=== PATIENT | female | born 1960 | race Two or more races ===

== ENCOUNTER 2024-10-09 17:03 | Inpatient (IN) | payer MEDICAID, SELFPAY ==
[2024-10-09] VITALS (8 sets, daily range): BP systolic 80–122; BP diastolic 48–61; PULSE 90–126; RESP 18–22; TEMP 37.5–39.5; O2SAT 96–100; BMI 29.2
--- NOTE | 2024-10-09 18:44 | PC.NURSE ---
sepsis alert called
--- NOTE | 2024-10-09 18:48 | XR_ITS ---
Examination: AP chest single view Technique one AP portable upright chest single view Exam date and time: October 09, 2024 at 1936 hours INDICATIONS: Sepsis alert FINDINGS: Normal heart size Subsegmental atelectasis at the lung bases. No lobar pneumonia Right arm dual PICC line tip SVC IMPRESSION: No pneumonia identified
--- NOTE | 2024-10-09 18:48 | PD.EDRME ---
Rapid Medical Screening Exam RME Arrival date/time: 10/09/24 17:03 Chief Complaint: Fever Time Seen by Provider: 10/09/24 17:09 Vital signs: Vital Signs Temperature 103.1 F H 10/09/24 18:43 Pulse Rate 126 H 10/09/24 18:43 Respiratory Rate 22 H 10/09/24 18:43 Blood Pressure 80/48 L 10/09/24 18:43 Pulse Oximetry (%) 97 10/09/24 18:43 Oxygen Delivery Method Room Air 10/09/24 18:43 RME Narrative: Fever initiated today, patient reports nausea and vomiting. Currently undergoing chemo, last treatment 2 weeks ago.
--- NOTE | 2024-10-09 18:51 | EKG_ITS ---
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: : [id number] Requested By: Quan Weiss Order Number: [id number] Reading MD: Quan Weiss Measurements Intervals Mcdougal Rate: 119 P: 40 SD: 134 QRS: -24 QRSD: 81 T: -59 QT: 339 QTc: 478 Interpretive Statements SINUS TACHYCARDIA MINIMAL VOLTAGE CRITERIA FOR LVH, CONSIDER NORMAL VARIANT [MEETS CRITERIA IN ONE OF: R(aVL), S(V1), R(V5), R(V5/V6)+S(V1)] POSSIBLE ANTERIOR MYOCARDIAL INFARCTION , OF INDETERMINATE AGE [30 ms Q WAVE IN V3/V4, OR R < 0.2 mV IN V4] Compared to ECG 05/24/2024 08:24:17 Myocardial infarct finding now present Sinus rhythm no longer present Sinus arrhythmia no longer present Short SD interval no longer present T-wave abnormality no longer present /store/S0/[id number]/[id number].pdf
[2024-10-09 19:18] LABS: Lactate (Lactic Acid) 3.1 mMol/L (0.4-2.0)
[2024-10-09 19:23] LABS: Basophils % (Auto) 0 % (0-2.5); Eosinophils % (Auto) 0 % (0-10); Hematocrit 24.6 % (36.0-46.0); Immature Granulocytes % (Auto) 11 % (0-0); Immature Granulocytes Auto 0.57 Thou/mm3 (0.00-0.00); Lymphocytes # (Auto) 0.2 Thou/mm3 (1.0-4.8); Lymphocytes % (Auto) 3 % (10-50); Mean Corpuscular HGB Conc 33.7 g/dl (31.0-37.0); Mean Corpuscular Hemoglobin 35.2 pg (25.0-35.0); Mean Corpuscular Volume 104 fL (80-100); Monocytes # (Auto) 0.4 Thou/mm3 (0.0-0.8); Monocytes % (Auto) 7 % (0-12); Neutrophils # (Auto) 4.2 Thou/mm3 (1.8-7.7); Neutrophils % (Auto) 79 % (37-80); Nucleated Red Blood Cell # 0.03 Thou/mm3 (0.00-0.00); Nucleated Red Blood Cell % 1 /100 WBC (0); Platelet Count 111 Thou/mm3 (140-440); Red Blood Count 2.36 Miln/mm3 (4.00-5.20); White Blood Count 5.4 Thou/mm3 (3.6-11.0)
[2024-10-09 19:26] LABS: Hemoglobin 8.3 g/dL (12.0-16.0)
--- NOTE | 2024-10-09 19:50 | PD.EDFEVER ---
ED Fever RME/HPI General Chief Complaint: Fever Stated Complaint: FEVER (CANCER PATIENT) Time Seen by Provider: 10/09/24 17:09 Arrival date/time: 10/09/24 17:03 RME / HPI RME / HPI Narrative: Fever initiated today, patient reports nausea and vomiting. Currently undergoing chemo, last treatment 2 weeks ago. This section includes all my notes and documentations, including HPI, PE, and ED course. Ramesh Patel MD HPI: 64-year-old female here to be evaluated with about 24-hour history of fever and chills and bodyaches and malaise and vomiting. No cough or congestion. No diarrhea. No abdominal pain. No other complaints. ROS: All negative except as documented in HPI. Physical Exam: General: Alert and oriented. No acute distress when remaining still. Eyes: Conjunctivae and lids clear. ENT: No nasal congestion. Neck: Supple. Heart: RRR. Lungs: No respiratory distress. Good air movement. No rhonchi, wheezing, rales. Abdomen: Soft and nontender. Normal bowel sounds. No distension. No rebound or guarding. Back: No CVA tenderness. Skin: Warm and dry. Neuro: Alert and oriented X 3. I reviewed all diagnostic test results. My interpretation of the EKG is sinus rhythm with no acute ST?T changes. My interpretation of the chest x-ray is no acute findings. Blood tests remarkable for K 3.1, lactic acid 3.1, troponin 0.291. UA showed leukocyte Estrace and WBC 21. COVID/influenza/strep/RSV negative. At this point, diagnoses include sepsis, possibly from UTI. Treatment here included IV fluid, KCl, Zofran, and Rocephin. Some improvement noted. I discussed the case with our hospitalist. About the presentation and exam and diagnostics and treatments here. And need of further care in the hospital. Will accept the patient. Ramesh Patel MD Related Data Home Medications ?Medication ?Instructions ?Recorded ?Confirmed lisinopril 20 mg tablet 20 mg PO QDAY #0 tabs 09/18/15 05/27/24 atorvastatin 10 mg tablet 10 mg PO QPM 02/29/24 05/27/24 folic acid 1 mg tablet 1 mg PO QDAY 02/29/24 05/27/24 hydroxychloroquine 200 mg tablet 200 mg PO QDAY 02/29/24 05/27/24 Held on 05/31/24. Instructions: Resume on 06/11/24. levothyroxine 75 mcg tablet 75 mcg PO QDAY 02/29/24 05/27/24 methotrexate sodium 2.5 mg tablets 2.5 mg PO QWEEK 02/29/24 05/27/24 in a dose pack Held on 05/31/24. Instructions: Resume on 06/14/24. f/u with rheumatology Allergies Allergy/AdvReac Type Severity Reaction Status Date / Time morphine Allergy Intermediate Hypotension Verified 10/09/24 17:06 codeine Allergy Unknown Verified 10/09/24 17:06 Course Quality Measures none Orders Category Date Time Status Bedside COVID-19 Antigen Test NOW Care 10/09/24 18:48 Completed Bedside Influenza A&B Antigen Test NOW Care 10/09/24 18:49 Completed COVID-19 Screening Questionnaire NOW Care 10/09/24 22:32 Completed Decision to Admit X1 Care 10/09/24 22:32 Completed EKG (ED ONLY) *Do not use* NOW Care 10/09/24 18:51 Completed Saline [Insert IV] NOW Care 10/09/24 19:52 Active CXR [XR chest 1V] Stat Exams 10/09/24 18:48 Completed EKG (ED Only) Stat Exams 10/09/24 18:51 Draft Blood Culture (Lab) Stat Lab 10/09/24 19:04 Received C-Reactive Protein Stat Lab 10/09/24 19:04 Completed CBC Stat Lab 10/09/24 19:04 Completed CMP [Comprehensive Metabolic Panel] Stat Lab 10/09/24 19:04 Completed Lactate (Lactic Acid) Stat Lab 10/09/24 19:04 Completed Lactic Acid, 3 HR Stat Lab 10/09/24 22:47 Completed Lipase Stat Lab 10/09/24 19:04 Completed Path Review Blood Smear Stat Lab 10/09/24 19:04 Completed Procalcitonin Stat Lab 10/09/24 19:04 Completed RSV [Respiratory Syncytial Virus Ag] Stat Lab 10/09/24 21:04 Completed Sed Rate (ESR) Stat Lab 10/09/24 19:04 Completed Strep A Rapid Stat Lab 10/09/24 21:04 Completed Thyroid Stimulating Hormone Stat Lab 10/09/24 19:04 Completed Troponin I Stat Lab 10/09/24 19:04 Completed Troponin I Stat Lab 10/09/24 21:44 Completed UA [Urinalysis] Stat Lab 10/09/24 21:36 Completed Urine Culture Stat Lab 10/09/24 21:36 Received Acetaminophen Tab [Tylenol ES Tab] Med 10/09/24 18:48 Discontinued 1,000 mg PO X1 ONE KCL 10% Liq UDC 15 ML Med 10/09/24 21:26 Discontinued 40 meq PO X1 ONE Ketorolac Inj [Toradol Inj] Med 10/09/24 19:52 Discontinued 15 mg IVP X1 ONE Nitroglycerin Oint 2% [Nitro-paste Oint 2%] Med 10/09/24 19:52 Discontinued 1 inch TOP X1 ONE Ondansetron Inj [Zofran Inj] Med 10/09/24 18:51 Discontinued 4 mg IV X1 ONE Sodium Chloride 0.9% 1000 ml [Ns] 2,313 ml Med 10/09/24 18:49 Discontinued IV 2,313 mls/hr cefTRIAXone/D5w 1gm IV premix [Rocephin/D5w 1gm IV Med 10/09/24 18:50 Discontinued premix] 1 gm in 50 ml IV X1 Vital Signs Vital signs: Vital Signs Temperature 103.1 F H 10/09/24 18:43 Pulse Rate 126 H 10/09/24 18:43 Respiratory Rate 22 H 10/09/24 18:43 Blood Pressure 80/48 L 10/09/24 18:43 Pulse Oximetry (%) 97 10/09/24 18:43 Oxygen Delivery Method Room Air 10/09/24 18:43 Fever Patient data External records reviewed:: [facility] previous records Clinical information provided by:: patient and family Social determinants that could affect healthcare access:: none Patient has the following chronic illnesses:: Lymphoma undergoing treatment How is presenting disease/condition affected by chronic disease/condition?: exacerbated by Evaluation data The following diagnostics were reviewed and interpreted by me:: lab results, radiology exam(s) and EKG tracing(s) (My interpretation of the EKG is: Sinus tachycardia (119 bpm) with nonspecific ST-T changes. Ramesh Patel MD) Lab and/or radiology exams considered but not ordered:: None Interpretation Summary: Sepsis Medications / Prescriptions Medications or Prescriptions considered but not ordered:: None Medication administrations:: Medication Administration History Acetaminophen (Acetaminophen 325 Mg Tablet) 650 mg PO Q6H PRN PRN Reason: Fever >101.5 Stop: 11/08/24 22:32 Enoxaparin Sodium (Enoxaparin Sod Inj 40 Mg/0.4 Ml Syringe) 40 mg SC QDAY [facility] Stop: 10/24/24 08:59 Sodium Chloride (Ns) 1,000 mls @ 75 mls/hr IV .[id number] [facility] Stop: 11/08/24 22:44 Last Admin: 10/09/24 22:42 Dose: 75 mls/hr Documented By: CVL Ceftriaxone Sodium/Dextrose (Rocephin/D5w 1gm Iv Premix) 1 gram in 50 mls @ 100 mls/hr IV QDAY [facility] Stop: 10/17/24 08:59 Magnesium Sulfate (Magnesium Sulfate Ivpb) 4 gm in 50 mls @ 12.5 mls/hr IV X1 ONE Stop: 10/10/24 04:45 Last Admin: 10/10/24 01:21 Dose: 12.5 mls/hr Documented By: CVL Levothyroxine Sodium (Levothyroxine Sodium 88 Mcg Tablet) 75 mcg PO ACBR [facility] Stop: 11/09/24 05:59 Ondansetron HCl (Ondansetron Inj 2 Mg/Ml Inj 2 Ml) 4 mg IV Q6H PRN; Protocol PRN Reason: NAUSEA OR VOMITING Stop: 11/08/24 22:32 Discontinued Medications Acetaminophen (Acetaminophen 500 Mg Tablet) 1,000 mg PO X1 ONE Stop: 10/09/24 18:49 Last Admin: 10/09/24 20:29 Dose: 1,000 mg Documented By: CVL Sodium Chloride (Ns) 2,313 mls @ 2,313 mls/hr 30 ml/kg infuse over 60 min (2313 ml) IV .Q1H ONE; Protocol Stop: 10/09/24 19:48 Last Infusion: 10/09/24 21:40 Dose: Infused Documented By: Admin: 10/09/24 20:25 Dose: 2,313 mls/hr Documented By: RC Ceftriaxone Sodium/Dextrose (Rocephin/D5w 1gm Iv Premix) 1 gm in 50 mls @ 100 mls/hr IV X1 ONE Stop: 10/09/24 19:19 Last Infusion: 10/09/24 21:00 Dose: Infused Documented By: Admin: 10/09/24 20:26 Dose: 100 mls/hr Documented By: ELIDA Acetaminophen (Ofirmev Inj) 1,000 mg in 100 mls @ 250 mls/hr IV Q6HR YVETTE Stop: 10/10/24 18:23 Last Admin: 10/10/24 00:14 Dose: Not Given Documented By: CVL Non-Admin Reason: Cancelled by Provider Acetaminophen (Ofirmev Inj) 1,000 mg in 100 mls @ 250 mls/hr IV X1 ONE Stop: 10/10/24 00:36 Last Infusion: 10/10/24 00:50 Dose: Infused Documented By: Admin: 10/10/24 00:26 Dose: 250 mls/hr Documented By: CVL Ketorolac Tromethamine (Ketorolac Inj 30 Mg/Ml Vial) 15 mg IVP X1 ONE Stop: 10/09/24 19:53 Last Admin: 10/09/24 20:32 Dose: 15 mg Documented By: CVL Nitroglycerin (Nitroglycerin Oint 2% 1 Inch Packet) 1 inch TOP X1 ONE Stop: 10/09/24 19:53 Last Admin: 10/09/24 20:49 Dose: Not Given Documented By: CVL Non-Admin Reason: Cancelled by Provider Ondansetron HCl (Ondansetron Inj 2 Mg/Ml Inj 2 Ml) 4 mg IV X1 ONE; Protocol Stop: 10/09/24 18:52 Last Admin: 10/09/24 21:06 Dose: Not Given Documented By: CVL Non-Admin Reason: Change of Condition Potassium Chloride (Potassium Chloride 10% 20 Meq/15 Ml Udc) 40 meq PO X1 ONE Stop: 10/09/24 21:27 Last Admin: 10/09/24 21:45 Dose: 40 meq Documented By: CVL Potassium Chloride (Potassium Chloride 20 Meq Tabcr) 40 meq PO X1 ONE Stop: 10/09/24 22:35 Last Admin: 10/09/24 22:43 Dose: Not Given Documented By: CVL Non-Admin Reason: Cancelled by Provider Potassium Phos/Sodium Phos (Naph,[facility] 1 Packet (1.5 Gm)) 2 packet PO X1 ONE Stop: 10/10/24 00:47 Last Admin: 10/10/24 01:56 Dose: 2 packet Documented By: CVL Treatment from me here included IV fluid, KCl, Zofran, and Rocephin. Consultations Consultation(s) initiated? (list below): No Diagnosis Fever Differential Diagnosis: cellulitis, fever of unknown origin, gastroenteritis, community acquired pneumonia, pyelonephritis, viral infection, sepsis and influenza Most likely diagnosis given after review of the tests above:: Sepsis Admission Indicated Admission indicated?: not indicated Admission Request Was there a request for admission?: No Disposition Plan Disposition Plan: Discharge Discharge Attestation Discharge Attestation: The patient and all family members were given an opportunity to ask questions and understood the discharge instructions. Discharge instructions specifically effects, indications for sooner follow up or return to the emergency department, and the expected course of current diagnosis. Patient condition: Stable Critical Care Time Critical Care Time Critical Care Time: Yes Total Critical Care Time (min.): 32 Attestation: Due to a high probability of clinically significant, life threatening deterioration, the patient required my highest level of preparedness to intervene emergently and I personally spent this critical care time directly and personally managing the patient. This critical care time included obtaining a history; examining the patient; ordering and review of studies; arranging urgent treatment with development of a management plan; evaluation of patient's response to treatment; frequent reassessment; and discussions with family and other providers. It was exclusive of separately billable procedures and treating other patients and teaching time. Ramesh Patel MD Discharge Plan Plan Patient Disposition: Admit Acute Care w/in Hospital Problem List Clinical Impression: Sepsis
[2024-10-09 20:23] LABS: Sed Rate (ESR) 5 mm/hr (0-30)
--- NOTE | 2024-10-09 20:25 | PC.NURSE ---
PT HAVING CHILLS AT THIS TIME, TYLENOL AND TORADOL ORDERED AND GIVEN TO PT.
[2024-10-09] MEDS: cefTRIAXone/D5w 1gm IV premix 1 GM/50 ML BAG IV (20:26)
[2024-10-09] MEDS: ACETAMINOPHEN 500 MG TABLET 1000 MG PO (20:29)
[2024-10-09] MEDS: KETOROLAC INJ 30 MG/ML VIAL 15 MG IVP (20:32)
[2024-10-09 20:38] LABS: Alanine Aminotransferase 16 U/L (10-49); Albumin, Serum 3.5 gm/dL (3.4-4.8); Albumin/Globulin Ratio 1.3 (1.2-2.2); Alkaline Phosphatase 73 U/L (46-116); Anion Gap 12 (7-16); Aspartate Amino Transferase 35 U/L (0-34); BUN/Creatinine Ratio 10 Ratio (12-20); Bilirubin,Total 0.9 mg/dL (0.3-1.2); Blood Urea Nitrogen 8 mg/dL (9-23); Calcium 8.9 mg/dL (8.3-10.6); Calcium (Corrected) 9.3 mg/dL (8.5-10.1); Carbon Dioxide 25.7 mMol/L (20.0-31.0); Chloride 104 mMol/L (98-107); Creatinine (Component) 0.8 mg/dL (0.6-1.3); Estimated Creatinine Clearance 71.4 mL/min (>60); Globulin 2.7 gm/dL (2.3-3.5); Glucose 173 mg/dL (74-106); Lipase 18 U/L (12-53); Osmolality,Calculated 285 (275-295); Potassium 3.1 mMol/L (3.4-5.1); Procalcitonin 1.23 ng/ml (0.0-0.49); Sodium 142 mMol/L (136-145); Total Protein 6.2 gm/dL (5.7-8.2); eGFR > 60 See Note
[2024-10-09 20:39] LABS: Troponin I 0.291 ng/mL (0.0-0.045)
[2024-10-09 21:25] LABS: C-Reactive Protein 1.6 mg/dL (0.0-0.9); Thyroid Stimulating Hormone 1.44 uIU/mL (0.55-4.78)
[2024-10-09 21:44] LABS: Strep A Rapid Negative (Negative)
[2024-10-09] MEDS: POTASSIUM CHLORIDE 10% 20 MEQ/15 ML UDC 40 MEQ PO (21:45)
[2024-10-09 21:51] LABS: Collection Type, Urine Clean Catch
[2024-10-09 21:58] LABS: Respiratory Syncytial Virus Ag Negative (Negative)
[2024-10-09 22:04] LABS: Bilirubin,Urine Negative (Negative); Blood,Urine Negative (Negative); Clarity,Urine Turbid (Clear/Hazy); Color,Urine Drk-Yellow (Lt Yel-Yel); Glucose, Urine Trace (Negative); Hyaline Casts,Urine 8 /hpf (0-1); Ketones,Urine Trace (Negative); Leukocyte Esterase,Urine Positive (Negative); Nitrite,Urine Negative (Negative); Protein,Urine 2+ (Neg - Trace); RBC,Urine 1 /hpf (0-3); Specific Gravity,Urine 1.033 (1.001-1.035); Squamous Epithelial Cell,Urine 6 /hpf (0-5); WBC,Urine 21 /hpf (0-5)
[2024-10-09 22:09] LABS: Path Review Blood Smear Sent to Pathologist
[2024-10-09 22:12] LABS: Troponin I 0.313 ng/mL (0.0-0.045)
[2024-10-09 22:14] LABS: Reflex Lactate? Y
--- NOTE | 2024-10-09 22:37 | EVENTNT_ITS ---
Documentation for date of: 10/09/24 Event Note Event Note: A 64-year-old female presented to the ER with the chief complaint of fever, chills, and generalized weakness. The patient reports symptom onset earlier today, including high fever, chills, shaking, and three episodes of vomiting. She also experienced nausea, transient shortness of breath during chills, and dizziness. She denies cough, diarrhea, dysuria, or abdominal pain aside from transient discomfort after vomiting. She h ad chemotherapy two weeks ago and is scheduled for her final cycle on October 16. Lab drawn this morning showed a hemoglobin of 7.1, but she was unable to obtain a transfusion due to facility limitations. Her last transfusion was in May. She reports significant fatigue and difficulty with mobility. The patient has a history of B-cell lymphoma, SLE, and HTN. Surgical history includes tubal ligation. Current medications include Lisinopril, Atorvastatin, and Levothyroxine. She is not currently on medications for lupus per oncology guidance. Social history includes no tobacco, alcohol, or recreational drug use. She lives with her adult children and does not drive due to weakness. Her functional status is limited, with difficulty walking and standing. She is scheduled for a PET scan on Tuesday. In the ER, vital signs recorded as temp 103.1 F, HR 126, RR 22, BP 80/48 mmHg. Labs revealed WBC 5.4, Hgb 8.3, MCV 104, Plt 111, Na 142, K 3.1, BUN 8, Cr 0.8, glucose 173, lactic acid 3.1, CRP 1.6, troponin trended from 0.291 to 0.313, and procalcitonin 1.23. RSV, strep, COVID, and flu were negative. UA showed turbid urine with WBC 21 and negative nitrites. CXR showed no pneumonia, and EKG d emonstrated sinus tachycardia with QTC 478. Sepsis alert was initiated. The patient was admitted for further evaluation and management. #Sepsis Assessment: - Fever, tachycardia (HR 126), hypotension (BP 80/48), RR 22, temp 103.1?F ? meets >= SIRS criteria - qSOFA 2 (SBP <100, RR >=22) - Elevated lactate (3.1), procalcitonin (1.23) - Immunocompromised (recent chemotherapy, B-cell lymphoma) - UA suggestive of UTI (turbid, WBC 21) Plan: - Broad-spectrum IV antibiotics. - IV fluid resuscitation (initial 30 mL/kg crystalloids). - Continue sepsis protocol, monitor lactate trend and end-organ function. #NSTEMI, Type 2 Assessment: - Mild troponin elevation (0.291 -> 0.313) without chest pain or ischemic EKG changes; likely due to supply-demand mismatch from hypotension during sepsis. Plan: - Continue monitoring troponin, repeat AM. - Continue telemetry monitoring. - Avoid hypotension; support MAP >65 mmHg. - Hold BP meds. #B-cell Lymphoma (on chemotherapy) Assessment: - Active malignancy, recent chemotherapy (2 weeks ago), scheduled final cycle October 16. - Immunosuppressed state. PET scan scheduled. Plan: - Supportive care during hospitalization. - Monitor for tumor lysis, neutropenia, and infection. #Systemic Lupus Erythematosus Assessment: - History of SLE; currently not on immunosuppressants per oncology guidance. Plan: - No immediate intervention unless flare suspected (currently none). - Outpatient f/u. #Hypertension Assessment: - History of HTN; currently hypotensive and septic. Plan: - Hold antihypertensive medications during hypotension. - Resume when hemodynamically stable. - Monitor BP and renal function daily. #Macrocytic Anemia Assessment: - Chronic anemia (Hgb 7.1 earlier, now 8.3), MCV 104, history of transfusions; possibly chemotherapy-related and/or nutritional. Plan: - Type and crossmatch for PRBC; consider transfusion if symptomatic or Hgb <7?8 based on clinical status. - Evaluate for B12/folate levels. - Monitor CBC trend. #Hypokalemia - Replace. - Check MG/phosphorus. #Hypothyroidism - Continue home meds.
[2024-10-09] MEDS: SODIUM CHLORIDE 0.9% 1000 ML 1,000 ML 75 ML IV (22:42)
[2024-10-09 22:57] LABS: Lactic Acid, 3 HR 2.3 mMol/L (0.4-2.0)
[2024-10-09 23:26] LABS: Phosphorous 2.3 mg/dL (2.4-5.1)
--- NOTE | 2024-10-09 23:29 | PD.RESHP ---
Documentation for date of: 10/09/24 [facility] History of Present Illness History of present illness: Agustina is a 64 y/o female with PMHx B-cell lymphoma (diagnosed January 2024, sees oncologist in [place] but will be seeing Dr. Winters in [place] soon, last chemo 2 weeks ago, gets chemo every 3 weeks), hypertension hyperlipidemia, hypothyroidism, SLE who comes in for an evaluation of fever and chills with associated vomiting with the onset of this morning. Patient reports that she had her temperature measured today and was 103.6 and has never been that high. She says she is experienced no dysuria but gets urinary frequency increased usually at night and thinks it is because she drinks a lot of water. She gets cancer treatment every 3 weeks in [place] for her B-cell lymphoma. She denies any recent travel or recent sick contacts. She does take shots for white cells and hemoglobin. She denies any CP, SOB, numbness, tingling. She said her last UTI was in May 2024, and she does not get them that often. She says she is getting a PET scan and chemotherapy next week. She has no other complaints at this time. ED Course: Patient came to the ED for febrile 103.1, heart rate 126, respiratory 22, blood pressure of 80/48, saturating 97% on room air. Patient was worked up was found to have a sodium 142, potassium 3.1, BUN/creatinine 8 and 0.8 respectively, sugar 173, white count 5.4, hemoglobin 8.4, platelets 111, lactate 3.1, troponin 0.291, TSH 1.44, urinalysis showed positive leukocyte esterase, 21 white cells, no bacteria, showed hyaline casts. EKG shows sinus tachycardia. CXR showed atelectasis but no pneumonia. Sepsis alert was initiated and patient was given 2.3 L normal saline bolus, Rocephin x 1, 1 g Tylenol, Toradol 15 mg x 1, potassium 40 mEq, and started on normal saline 75 cc an hour. Medicine was consulted and patient was admitted to floors. PMHx: As above Surgeries: Tubal ligation, cholecystectomy (2008), Jeff fundoplication (2003) Meds: Lipitor, synthroid 75 mcg, Lisinopril 20 mg, folate 1 mg, ? Hydroxychloroquine 200 mg Allergies: Codeine and morphine Family Hx: Mother at age 86 and had dementia, brother of cirrhosis and lung care at age 69, dad of heart problems at age 73 Social Hx: Born in [facility], moved to [place] when she was age of 5. No smoking history, never has been a heavy drinker, no drug use. 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 Has 5 kids. Drinks about 5 ensures a day, tries to eat whole foods (actual food, not the grocery store). No recent travel Review of Systems Review of Systems Narrative Review of Systems: Constitutional: +fever,+ chills, no fatigue, weakness, weight loss HEENT: No eye pain, vision loss, ear pain, hearing loss, dysphagia, Cardiovascular: No chest pain, palpitations, edema, pain with walking Respiratory: No cough, shortness of breath, wheezing GI: No NVD, abdominal pain, constipation, blood in stool, loss of appetite, heartburn Extremities: No presence of pitting edema MSK: No back pain, joint pain, joint swelling Neuro: No dizziness, numbness, weakness, headaches, seizures, tremors Psych: No anxiety, depression Exam Vital Signs Temp Pulse Resp BP Pulse Ox O2 Del Method 99.7 F 90 19 101/49 L 97 Room Air 10/09/24 22:16 10/09/24 22:16 10/09/24 22:16 10/09/24 22:16 10/09/24 22:16 10/09/24 22:16 Narrative Exam General: AAOx3, NAD, pleasant woman, looks older than she is, has minimal hair, undergoing current chemo, wearing mask HEENT: Moist mucous membranes, conjunctiva clear, EOMI, PERRLA, Cardiovascular: S1, S2, radial pulses +2 bilat, RRR Pulmonary: CTAB bilat no cough, no wheezing GI: No tenderness to light or deep palpitation, no guarding, rigidity, rebound tenderness or distension Extremities: No presence of trace or pitting edema in lower extremities bilaterally, dorsalis pedis pulses +2 bilaterally Neuro: AAOx3, no focal motor or sensory deficits in the UE or LE bilat Psych: Good judgement, thought and behavior. Cooperative Results: Labs 10/09/24 19:04 10/09/24 19:04 Labs: Short CBC 10/09/24 Range/Units 19:04 WBC 5.4 (3.6-11.0) Thou/mm3 Hgb 8.3 L (12.0-16.0) g/dL Hct 24.6 L (36.0-46.0) % Plt Count 111 L (140-440) Thou/mm3 BMP 10/09/24 19:04 Sodium 142 Potassium 3.1 L Chloride 104 Carbon Dioxide 25.7 BUN 8 L Creatinine 0.8 Glucose 173 H Calcium 8.9 Cardiac Enzymes 10/09/24 10/09/24 Range/Units 19:04 21:44 Troponin I 0.291 H* 0.313 H* (0.0-0.045) ng/mL Liver Function 10/09/24 Range/Units 19:04 Total Bilirubin 0.9 (0.3-1.2) mg/dL AST 35 H (0-34) U/L ALT 16 (10-49) U/L Alkaline Phosphatase 73 (46-116) U/L Albumin 3.5 (3.4-4.8) gm/dL Urine 10/09/24 Range/Units 21:36 Urine Color Drk-Yellow A (Lt Yel-Yel) Urine Clarity Turbid A (Clear/Hazy) Urine pH 6.0 (5.0-7.0) Ur Specific [place] 1.033 (1.001-1.035) Urine Protein 2+ A (Neg - Trace) Urine Glucose (UA) Trace (Negative) Quality Measures Quality Measures VTE prophylaxis (Lovenox ) Medications Home Medications and Allergies Home Medications ?Medication ?Instructions ?Recorded ?Confirmed ?Type lisinopril 20 mg tablet 20 mg PO QDAY #0 tabs 09/18/15 05/27/24 History atorvastatin 10 mg tablet 10 mg PO QPM 02/29/24 05/27/24 History folic acid 1 mg tablet 1 mg PO QDAY 02/29/24 05/27/24 History hydroxychloroquine 200 mg tablet 200 mg PO QDAY 02/29/24 05/27/24 History Held on 05/31/24. Instructions: Resume on 06/11/24. levothyroxine 75 mcg tablet 75 mcg PO QDAY 02/29/24 05/27/24 History methotrexate sodium 2.5 mg tablets 2.5 mg PO QWEEK 02/29/24 05/27/24 History in a dose pack Held on 05/31/24. Instructions: Resume on 06/14/24. f/u with rheumatology Allergies Allergy/AdvReac Type Severity Reaction Status Date / Time morphine Allergy Intermediate Hypotension Verified 10/09/24 17:06 codeine Allergy Unknown Verified 10/09/24 17:06 Visit Medications Acetaminophen (Acetaminophen 325 Mg Tablet) 650 mg PO Q6H PRN PRN Reason: Fever >101.5 Stop: 11/08/24 22:32 Enoxaparin Sodium (Enoxaparin Sod Inj 40 Mg/0.4 Ml Syringe) 40 mg SC QDAY [facility] Stop: 10/24/24 08:59 Sodium Chloride (Ns) 1,000 mls @ 75 mls/hr IV .[id number] YVETTE Stop: 11/08/24 22:44 Last Admin: 10/09/24 22:42 Dose: 75 mls/hr Ceftriaxone Sodium/Dextrose (Rocephin/D5w 1gm Iv Premix) 1 gram in 50 mls @ 100 mls/hr IV QDAY YVETTE Stop: 10/17/24 08:59 Levothyroxine Sodium (Levothyroxine Sodium 88 Mcg Tablet) 75 mcg PO ACBR YVETTE Stop: 11/09/24 05:59 Ondansetron HCl (Ondansetron Inj 2 Mg/Ml Inj 2 Ml) 4 mg IV Q6H PRN; Protocol PRN Reason: NAUSEA OR VOMITING Stop: 11/08/24 22:32 Discontinued Medications Acetaminophen (Acetaminophen 500 Mg Tablet) 1,000 mg PO X1 ONE Stop: 10/09/24 18:49 Last Admin: 10/09/24 20:29 Dose: 1,000 mg Sodium Chloride (Ns) 2,313 mls @ 2,313 mls/hr 30 ml/kg infuse over 60 min (2313 ml) IV .Q1H ONE; Protocol Stop: 10/09/24 19:48 Last Infusion: 10/09/24 21:40 Dose: Infused Ceftriaxone Sodium/Dextrose (Rocephin/D5w 1gm Iv Premix) 1 gm in 50 mls @ 100 mls/hr IV X1 ONE Stop: 10/09/24 19:19 Last Infusion: 10/09/24 21:00 Dose: Infused Ketorolac Tromethamine (Ketorolac Inj 30 Mg/Ml Vial) 15 mg IVP X1 ONE Stop: 10/09/24 19:53 Last Admin: 10/09/24 20:32 Dose: 15 mg Nitroglycerin (Nitroglycerin Oint 2% 1 Inch Packet) 1 inch TOP X1 ONE Stop: 10/09/24 19:53 Last Admin: 10/09/24 20:49 Dose: Not Given Ondansetron HCl (Ondansetron Inj 2 Mg/Ml Inj 2 Ml) 4 mg IV X1 ONE; Protocol Stop: 10/09/24 18:52 Last Admin: 10/09/24 21:06 Dose: Not Given Potassium Chloride (Potassium Chloride 10% 20 Meq/15 Ml Udc) 40 meq PO X1 ONE Stop: 10/09/24 21:27 Last Admin: 10/09/24 21:45 Dose: 40 meq Potassium Chloride (Potassium Chloride 20 Meq Tabcr) 40 meq PO X1 ONE Stop: 10/09/24 22:35 Last Admin: 10/09/24 22:43 Dose: Not Given Assessment & Plan Plan Assessment Agustina is a 64 y/o female with PMHx B-cell lymphoma (diagnosed January 2024, sees oncologist in [place] but will be seeing Dr. Winters in [place] soon, last chemo 2 weeks ago, gets chemo every 3 weeks), hypertension hyperlipidemia, hypothyroidism, SLE who comes #Sepsis secondary to #UTI Assessment: - Fever, tachycardia (HR 126), hypotension (BP 80/48), RR 22, temp 103.1?F ? meets >= SIRS criteria - qSOFA 2 (SBP <100, RR >=22) - Elevated lactate (3.1), procalcitonin (1.23) - Immunocompromised (recent chemotherapy, B-cell lymphoma) - UA suggestive of UTI (turbid, WBC 21) Plan: - Continue with Rocephin 1g IV (10/09-) - IV fluid resuscitation (initial 30 mL/kg crystalloids). - Continue sepsis protocol, monitor lactate trend and end-organ function - F/U blood and urine cultures #NSTEMI, Type 2 Mild troponin elevation (0.291 -> 0.313) without chest pain or ischemic EKG changes; likely due to supply-demand mismatch from hypotension during sepsis. Plan: - Continue monitoring troponin, repeat AM. - Continue telemetry monitoring. - Avoid hypotension; support MAP >65 mmHg. - Hold BP meds. #B-cell Lymphoma (on chemotherapy) Active malignancy, recent chemotherapy (2 weeks ago), scheduled final cycle October 16. Immunosuppressed state. PET scan scheduled. Plan: - Supportive care during hospitalization. - Monitor for tumor lysis, neutropenia, and infection. #Systemic Lupus Erythematosus History of SLE; currently not on immunosuppressants per oncology guidance. Plan: - No immediate intervention unless flare suspected (currently none). - Outpatient f/u. #Hypertension Assessment: - History of HTN; currently hypotensive and septic. Plan: - Hold antihypertensive medications during hypotension. - Resume when hemodynamically stable. - Monitor BP and renal function daily. #HLD Plan: - Pending Med rec - F/u Lipid panel #Macrocytic Anemia Assessment: - Chronic anemia (Hgb 7.1 earlier, now 8.3), MCV 104, history of transfusions; possibly chemotherapy-related and/or nutritional. Plan: - Type and crossmatch for PRBC; consider transfusion if symptomatic or Hgb <7?8 based on clinical status. - Evaluate for B12/folate levels. - Monitor CBC trend - F/u reticulocyte count and PBS #Hypokalemia #Electrolyte derrangements K+ 3.1 in ED Plan: - Replace as needed - Trend MG/phosphorus #Hypothyroidism TSH 1.44 today Plan: - Continuing home synthroid 75 mcg #Health Maintenance Disposition: Telemetry DVT prophylaxis: Lovenox GI prophylaxis: None indicated at this time Diet: Cardiac CODE STATUS: Full Patient seen and care discussed with my attending physician, Dr. Jaspal Ge, PGY-1 Attending Provider Attestation/Addendum Pt was evaluated and plan formulated together with the housestaff team. I have reviewed the residents note above and agree with most of its content. Please refer to the residents note for additional details.
[2024-10-10] VITALS (18 sets, daily range): BP systolic 97–132; BP diastolic 48–69; PULSE 83–97; RESP 14–24; TEMP 36.9–38; O2SAT 93–100; BMI 31.1; BMI 47.0
[2024-10-10] MEDS: ACETAMINOPHEN IVPB 1,000 MG/100 ML VIAL 250 MG IV (00:26)
--- NOTE | 2024-10-10 00:30 | PC.NURSE ---
PT C/O BEING COLD, HAVING CHILLS, TEMP=99.4 ORALLY, DR. HERNANDEZ NOTIFIED, NEW ORDER GIVEN AND CARRIED OUT.
[2024-10-10] MEDS: Magnesium Sulfate 4 GM Ivpb 4 GM/50 ML BAG IV (01:21)
[2024-10-10] MEDS: NAPH,KPH MBDB 1 PACKET (1.5 GM) 2 PACKET PO (01:56)
--- NOTE | 2024-10-10 04:45 | PC.NURSE ---
PT STARTED TO HAVE CHILLS AGIAN, TEMP =100.4, DR. HERNANDEZ AWARE, OK TO GIVE TYLENOL AGAIN BUT WILL DISCONTINUE AND ORDER IBUPROFEN.
[2024-10-10] MEDS: ACETAMINOPHEN 325 MG TABLET 650 MG PO (04:47)
[2024-10-10 05:20] LABS: Basophils % (Auto) 0 % (0-2.5); Eosinophils % (Auto) 0 % (0-10); Hematocrit 20.4 % (36.0-46.0); Immature Granulocytes % (Auto) 13 % (0-0); Immature Granulocytes Auto 0.36 Thou/mm3 (0.00-0.00); Immature Reticulocyte Fraction 34.1 % (3.0-15.9); Lymphocytes # (Auto) 0.1 Thou/mm3 (1.0-4.8); Lymphocytes % (Auto) 4 % (10-50); Mean Corpuscular HGB Conc 33.8 g/dl (31.0-37.0); Mean Corpuscular Hemoglobin 35.6 pg (25.0-35.0); Mean Corpuscular Volume 105 fL (80-100); Monocytes # (Auto) 0.2 Thou/mm3 (0.0-0.8); Monocytes % (Auto) 7 % (0-12); Neutrophils # (Auto) 2.1 Thou/mm3 (1.8-7.7); Neutrophils % (Auto) 76 % (37-80); Nucleated Red Blood Cell # 0.03 Thou/mm3 (0.00-0.00); Nucleated Red Blood Cell % 1 /100 WBC (0); Red Blood Count 1.94 Miln/mm3 (4.00-5.20); Reticulocyte % (Auto) 4.9 % (0.5-1.5); Reticulocyte Absolute Auto 94.5 Biln/L (25.0-75.0)
[2024-10-10 05:30] LABS: Hemoglobin 6.9 g/dL (12.0-16.0); Platelet Count 75 Thou/mm3 (140-440); White Blood Count 2.8 Thou/mm3 (3.6-11.0)
--- NOTE | 2024-10-10 05:44 | PD.EVENT ---
Documentation for date of: 10/10/24 Event Note Event Note: Persistent fever with chills. Has received a total of 2.65 g of Tylenol so far. Labs revealed Hb 6.9 and WBC 2.8. Plan to transfuse 1 unit of PRBC and escalate antibiotics to cefepime. Discontinue Tylenol and switch to Ibuprofen.
[2024-10-10] MEDS: CEFEPIME INJ 2 GM in SODIUM CHLORIDE 0.9% (Popper) 50 ML IV ×3 (06:09→21:38)
[2024-10-10 06:53] LABS: Glucose Estimated Average 91 mg/dL (80-131); Hemoglobin A1C 4.8 % Hgb (4.8-6.0)
--- NOTE | 2024-10-10 07:30 | PC.NURSE ---
RESIDENTS AT BEDSIDE TO SEE PT
[2024-10-10] MEDS: SODIUM CHLORIDE 0.9% 500 ML 500 ML 999 ML IV (07:49)
[2024-10-10] MEDS: LEVOTHYROXINE SODIUM 25 MCG TABLET 75 MCG PO (08:22)
--- NOTE | 2024-10-10 09:14 | PC.NURSE ---
LAB AT BEDSIDE FOR TYPE AND SCREEN
[2024-10-10 10:47] LABS: Slide Review Platelets confirmed
[2024-10-10 11:45] LABS: Path Review Blood Smear Sent to Pathologist
[2024-10-10 11:51] LABS: Hematocrit 21.8 % (36.0-46.0)
[2024-10-10 11:52] LABS: Folate 19.12 ng/mL (>5.38); Vitamin B12 > 2000 pg/mL (211-911)
--- NOTE | 2024-10-10 12:15 | PC.NURSE ---
pt states that she just wanted ensure to drink and not food. pt states that her daughter is bringing her ensures at this time. no distress noted. call light within reach
[2024-10-10] MEDS: SODIUM CHLORIDE 0.9% 1000 ML 1,000 ML 75 ML IV (12:28)
[2024-10-10 12:52] LABS: Anion Gap 13 (7-16); BUN/Creatinine Ratio 13 Ratio (12-20); Blood Urea Nitrogen 9 mg/dL (9-23); Calcium 7.1 mg/dL (8.3-10.6); Carbon Dioxide 22.5 mMol/L (20.0-31.0); Cardiac Risk Estimate 2.4 RATIO (3.7-5.6); Chloride 107 mMol/L (98-107); Cholesterol 76 mg/dL (132-200); Creatinine (Component) 0.7 mg/dL (0.6-1.3); Estimated Creatinine Clearance 81.6 mL/min (>60); Glucose 101 mg/dL (74-106); HDL Cholesterol 32 mg/dL (40-60); LDL Cholesterol,Calculated 29 mg/dL (0-130); Osmolality,Calculated 281 (275-295); Phosphorous 2.4 mg/dL (2.4-5.1); Potassium 3.2 mMol/L (3.4-5.1); Sodium 142 mMol/L (136-145); Triglycerides 73 mg/dL (30-150); eGFR > 60 See Note
[2024-10-10 13:02] LABS: Troponin I 0.269 ng/mL (0.0-0.045)
[2024-10-10 13:12] LABS: Hemoglobin 7.3 g/dL (12.0-16.0)
--- NOTE | 2024-10-10 13:38 | ESPR_ITS ---
<Statement entered by Danielle Chavse MD - 10/10/24 15:41> I discussed with and supervised the pharmacy intern physician who took care of this patient. I personally saw and examined the patient and discussed the assessment and plan with the entire medicine team, including my attending Dr. Orona, I agree with the assessment and plan as documented below Patient seen and examined at bedside today. Labs and imaging reviewed. Patient admitted overnight This morning the bedside patient stated that she has past medical history of B- cell lymphoma she stated that her last therapy session was 2 weeks ago and since then she has been presenting fever. Patient was admitted most likely due sepsis secondary to UTI vs bacteremia. Patient stated the last year back in May/2024 had bacteremia. This morning patient was hypotensive with a MAP of 55 for which we gave 500 cc IV fluid bolus x 1 and patient was fluid responsive and MAP improved above 65. Patient is pancytopenic, hemoglobin 6.9, WBCs 2.8, ANC 2492, platelets 75, repeat H&H hemoglobin 7.3 for which we will hold transfusion at this moment due to low suspicion of acute bleed. Will continue IV broad-spectrum antibiotics cefepime. Due to patient has an indwelling PICC line catheter was placed back in May we will wait for blood cultures for possible removal of PICC line. Danielle Chaves MD PGY-3 Disclaimer: Despite multiple revisions, due to the dictation software being used, the document bellow may not be free of grammatical errors including phonetic/typographic errors. However, this does not deter from our commitment to providing health care in the patient's best interest in mind. <Statement entered by Vita Goldsmith MD - 10/10/24 15:15> Patient is a 64 y/o female with PMHx B-cell lymphoma, hypertension hyperlipidemia, hypothyroidism, SLE who comes to the with sepsis due to UTi vs bacteremia. Patient presented with a qSOFA of 2, 4/4 SIRS, initially presenting with a low BP of 80/48, lactic acidosis, and elevated WBC. Patient seen and examined at bedside, and MAP was consistently below 65 x 2 reads 5 minutes apart. An additional 500ml NS bolus given and MAP improved above 65. Patient has a PICC line which was placed after chemo port was removed in May 2024. Pending urine and blood cultures,and currently on IV Cefepime. Patient's oncologist is Dr. Alvarez, based from [place]. Troponin peaked at 0.313. [place] isolation precuations due to immunosuppression. Electrolytes will be repleted as needed. Repeat Hemolgobin was 7.3. At this point will try to hold off transfusion d/t low suspicion for active bleed, however, will continue to monitor. I discussed with and supervised the pharmacy intern physician who took care of this patient. I personally saw and examined the patient and discussed the assessment and plan with the entire medicine team, including my attending , I agree with most of the assessment and plan as documented below Vita Goldsmith M.D. PGY-2 Documentation for date of: 10/10/24 Subjective Subjective Interval history: No overnight events. Patient seen examined at bedside, mild distress. Patient endorses continued fevers and chills, fatigue. Denies nausea, vomiting, shortness of breath, chest pain. Patient initially hypotensive, improved with additional IV bolus NS. Continue to monitor hemoglobin, considering transfusion. Investigate sources of infection. Exam Vital Signs Temp Pulse Resp BP Pulse Ox O2 Del Method O2 Flow Rate 98.7 F 92 18 132/65 H 98 Nasal Cannula 2 10/10/24 12:53 10/10/24 12:53 10/10/24 12:53 10/10/24 12:53 10/10/24 12:53 10/10/24 12:13 10/10/24 12:13 Narrative Exam PE: Gen: Well-developed and well-nourished. Mild distress, ill-appearing. HEENT: NCAT, PERRLA, EOMI, MMM, anicteric conjunctivae. CVS: normal S1 and S2. RRR. No M/R/G. Resp: CTA B/L. No rhonchi, rales, crackles or wheezing. Abd: soft, non-tender, non-distended. BS+ in all 4 quadrants. MSK: Good ROM in BUE & BLE. No edema or rash. Neuro: CN II-XII grossly intact. Strength 5/5 in BUE & BLE. Alert and oriented x3. Psych: appropriate mood and affect. Objective Labs 10/10/24 11:33 10/10/24 04:55 Labs: Laboratory Results - last 24 hr 10/09/24 10/09/2410/09/25 19:04 21:04 21:36 WBC 5.4 RBC 2.36 L Hgb 8.3 L Hct 24.6 L MCV 104 H MCH 35.2 H MCHC 33.7 RDW Std Deviation 59.0 H Plt Count 111 L Neut % (Auto) 79 Lymph % (Auto) 3 L Wayne % (Auto) 7 Eos % (Auto) 0 Baso % (Auto) 0 Neut # (Auto) 4.2 Lymph # (Auto) 0.2 L Wayne # (Auto) 0.4 Eos # (Auto) 0.0 Baso # (Auto) 0.0 Immature Gran # (Auto) 0.57 H Absolute Nucleated RBC 0.03 H Immature Gran % 11 H Nucleated RBC % 1 H Smear Path Review Sent to Pathologist ESR 5 Retic Count (auto) Absolute Retic Immature Retic Fraction Retic Hgb Content CHr Sodium 142 Potassium 3.1 L Chloride 104 Carbon Dioxide 25.7 Anion Gap 12 BUN 8 L Creatinine 0.8 Estim Creat Clear Calc 71.4 eGFR > 60 BUN/Creatinine Ratio 10 L Glucose [address] Glu mg/dL Hemoglobin A1c Calculated Osmolality 285 Lactic Acid 3.1 H Calcium 8.9 Corrected Calcium 9.3 Phosphorus Magnesium Total Bilirubin 0.9 AST 35 H ALT 16 Alkaline Phosphatase 73 Troponin I 0.291 H* C-Reactive Prot, Quant 1.6 H Total Protein 6.2 Albumin 3.5 Globulin 2.7 Albumin/Globulin Ratio 1.3 Triglycerides Cholesterol LDL Cholesterol, Calc HDL Cholesterol Cholesterol/HDL Ratio Lipase 18 Vitamin B12 Folate Procalcitonin 1.23 H TSH 1.44 Ur Collection Type Clean Catch Urine Color Drk-Yellow A Urine Clarity Turbid A Urine pH 6.0 Ur Specific [place] 1.033 Urine Protein 2+ A Urine Glucose (UA) Trace Urine Ketones Trace Urine Blood Negative Urine Nitrite Negative Urine Bilirubin Negative Urine Urobilinogen (Auto) 3.0 Ur Leukocyte Esterase Positive Urine RBC 1 Urine WBC 21 H Ur Squamous Epith Cells 6 H Urine Bacteria None Hyaline Casts 8 H RSV Rapid Negative Group A Strep Rapid Negative Misc Test Result Blood Type Antibody Screen Crossmatch Blood Bank Wristband ID 10/09/24 10/09/24 10/10/24 21:44 22:47 04:55 WBC 2.8 L D RBC 1.94 L* Hgb 6.9 L* Hct 20.4 L* MCV 105 H MCH 35.6 H MCHC 33.8 RDW Std Deviation 61.0 H Plt Count 75 L D Neut % (Auto) 76 Lymph % (Auto) 4 L Wayne % (Auto) 7 Eos % (Auto) 0 Baso % (Auto) 0 Neut # (Auto) 2.1 Lymph # (Auto) 0.1 L Wayne # (Auto) 0.2 Eos # (Auto) 0.0 Baso # (Auto) 0.0 Immature Gran # (Auto) 0.36 H Absolute Nucleated RBC 0.03 H Immature Gran % 13 H Nucleated RBC % 1 H Smear Path Review Sent to Pathologist ESR Retic Count (auto) 4.9 H Absolute Retic 94.5 H Immature Retic Fraction 34.1 H Retic Hgb Content CHr 37.0 H Sodium 142 Potassium 3.2 L Chloride 107 Carbon Dioxide 22.5 Anion Gap 13 BUN 9 Creatinine 0.7 Estim Creat Clear Calc 81.6 eGFR > 60 BUN/Creatinine Ratio [address] Glu mg/dL 91 Hemoglobin A1c 4.8 Calculated Osmolality 281 Lactic Acid 2.3 H Calcium 7.1 L D Corrected Calcium Phosphorus 2.3 L 2.4 Magnesium 1.0 L TNP Total Bilirubin AST ALT Alkaline Phosphatase Troponin I 0.313 H* 0.269 H* C-Reactive Prot, Quant Total Protein Albumin Globulin Albumin/Globulin Ratio Triglycerides 73 Cholesterol 76 L LDL Cholesterol, Calc 29 HDL Cholesterol 32 L Cholesterol/HDL Ratio 2.4 L Lipase Vitamin B12 > 2000 H Folate 19.12 Procalcitonin TSH Ur Collection Type Urine Color Urine Clarity Urine pH Ur Specific [place] Urine Protein Urine Glucose (UA) Urine Ketones Urine Blood Urine Nitrite Urine Bilirubin Urine Urobilinogen (Auto) Ur Leukocyte Esterase Urine RBC Urine WBC Ur Squamous Epith Cells Urine Bacteria Hyaline Casts RSV Rapid Group A Strep Rapid Misc Test Result Platelets confirmed Blood Type Antibody Screen Crossmatch Blood Bank Wristband ID 10/10/24 10/10/24 09:11 11:33 WBC RBC Hgb 7.3 L Hct 21.8 L* MCV MCH MCHC RDW Std Deviation Plt Count Neut % (Auto) Lymph % (Auto) Wayne % (Auto) Eos % (Auto) Baso % (Auto) Neut # (Auto) Lymph # (Auto) Wayne # (Auto) Eos # (Auto) Baso # (Auto) Immature Gran # (Auto) Absolute Nucleated RBC Immature Gran % Nucleated RBC % Smear Path Review ESR Retic Count (auto) Absolute Retic Immature Retic Fraction Retic Hgb Content CHr Sodium Potassium Chloride Carbon Dioxide Anion Gap BUN Creatinine Estim Creat Clear Calc eGFR BUN/Creatinine Ratio Glucose Estimated Ave Glu mg/dL Hemoglobin A1c Calculated Osmolality Lactic Acid Calcium Corrected Calcium Phosphorus Magnesium Total Bilirubin AST ALT Alkaline Phosphatase Troponin I C-Reactive Prot, Quant Total Protein Albumin Globulin Albumin/Globulin Ratio Triglycerides Cholesterol LDL Cholesterol, Calc HDL Cholesterol Cholesterol/HDL Ratio Lipase Vitamin B12 Folate Procalcitonin TSH Ur Collection Type Urine Color Urine Clarity Urine pH Ur Specific [place] Urine Protein Urine Glucose (UA) Urine Ketones Urine Blood Urine Nitrite Urine Bilirubin Urine Urobilinogen (Auto) Ur Leukocyte Esterase Urine RBC Urine WBC Ur Squamous Epith Cells Urine Bacteria Hyaline Casts RSV Rapid Group A Strep Rapid Misc Test Result Blood Type O Positive Antibody Screen NEGATIVE Crossmatch See Detail Blood Bank Wristband ID Yes Quality Measures Quality Measures VTE prophylaxis Assessment & Plan Assessment Current Active Medications: Generic Name Dose Route Start Last Admin Trade Name Freq PRN Reason Stop Dose Admin Sodium Chloride 1,000 mls @ 75 mls/hr 10/09/24 22:45 10/10/24 12:28 Ns IV 11/08/24 22:44 75 mls/hr .[id number] YVETTE Administration Cefepime HCl 2 gm/ Sodium 50 mls @ 100 mls/hr 10/10/24 14:00 Chloride IV 10/17/24 13:59 Q8HR YVETTE Ibuprofen 400 mg 10/10/24 05:01 Ibuprofen Tab 400 Mg Tablet PO 11/09/24 05:00 Q6HR PRN PAIN OR FEVER > 101 Levothyroxine Sodium 75 mcg 10/10/24 08:30 10/10/24 08:22 Levothyroxine Sodium 25 Mcg Tablet PO 11/09/24 08:29 75 mcg ACBR YVETTE Administration Ondansetron HCl 4 mg 10/09/24 22:33 Ondansetron Inj 2 Mg/Ml Inj 2 Ml IV 11/08/24 22:32 Q6H PRN NAUSEA OR VOMITING Protocol Plan 64 y/o female with PMHx B-cell lymphoma (diagnosed January 2024, sees oncologist in [place] but will be seeing Dr. Winters in [facility], last chemo 2 weeks ago, gets chemo every 3 weeks), hypertension hyperlipidemia, hypothyroidism, SLE who comes #Sepsis secondary to UTI versus bacteremia #UTI Fever, tachycardia (HR 126), hypotension (BP 80/48), RR 22, temp 103.1?F ? meets >= SIRS criteria. qSOFA 2 (SBP <100, RR >=22). Elevated lactate 3.1, down trended to 2.3. Procalcitonin elevated at 1.23. Patient significantly hypotensive, only improved with approximately 3 L IV bolus due to sepsis. Complicated by immunocompromised state (recent chemotherapy, B-cell lymphoma). UA suggestive of UTI (turbid, WBC 21), possible contaminant. Cannot rule out bacteremia, patient has PICC line for chemotherapy, does not appear infected at this time. -Cefepime 2 g IV every 8 hours (started 10/10) -Continue sepsis protocol, monitor lactate trend and end-organ function -F/U blood and urine cultures -Consider removing PICC line if patient is bacteremic #NSTEMI, Type 2 Mild troponin elevation, peaked at 0.313 without chest pain or ischemic EKG changes; likely due to supply-demand mismatch from hypotension during sepsis. -Continue telemetry monitoring. -Avoid hypotension; support MAP >65 mmHg. -Hold BP meds. #B-cell Lymphoma (on chemotherapy) Active malignancy, recent chemotherapy (2 weeks ago), scheduled to begin maintenance therapy and gets a PET scan on October 16. Immunosuppressed state. Spoke with patient's oncologist Dr. Alvarez, recommended treating has any other septic patient. -Supportive care during hospitalization. -Monitor for tumor lysis, neutropenia, and infection. -Reverse isolation precautions due to immunosuppression #Hypokalemia #Electrolyte derrangements Patient has multiple low electrolytes. Potentially caused by chemotherapy, high cell turnover. -Replace as needed -Trend MG/phosphorus #Macrocytic Anemia Chronic anemia (Hgb 7.1 earlier, now 8.3), MCV 104, history of transfusions; possibly chemotherapy-related and/or nutritional. Spoke to Dr. Alvarez, patient's oncologist, recommend consider transfusion with leukoradiated PRBC. B12 and folate not diminished. Suspect partially due to dilutional anemia in setting of sepsis bolus IV fluids. -Type and crossmatch for PRBC; consider transfusion if symptomatic or Hgb <7?8 based on clinical status. -Monitor CBC trend #Systemic Lupus Erythematosus History of SLE; currently not on immunosuppressants per oncology guidance. -No immediate intervention unless flare suspected (currently none). -Outpatient f/u. #Hypertension, patient history History of HTN; currently hypotensive and septic. Patient received approximately 3 L IV fluids in the ED with improvement in blood pressure. -Hold antihypertensive medications during hypotension. -Resume when hemodynamically stable. -Monitor BP and renal function daily. #Hypothyroidism TSH 1.44 today -Continuing home synthroid 75 mcg Lines: Peripheral IV DVT prophylaxis: Lovenox GI prophylaxis: None indicated at this time Diet: Cardiac CODE STATUS: Full Plan of care discussed with senior resident Dr. Goldsmith PGY?[address] Chaves PGY?3, and attending Dr. Orona. Bob Bloom MD PGY?1 Attending Provider Attestation/Addendum I have examined the patient, reviewed labs and imaging findings, discussed the case with the resident(s), and reviewed entered orders. I agree with the plan of care as outlined in this note, with these additional summaries/recommendations: Patient seen at bedside. Patient admitted overnight for sepsis secondary to urinary tract infection. Patient meets sepsis criteria given hypotension with MAP less than 65, elevated lactic acid, and evidence of endorgan damage with elevated troponin. Patient received sepsis fluid resuscitation in the ED. Was given additional fluids this morning for soft blood pressure. Sepsis suspected secondary to urinary tract infection although patient denies urinary symptoms and no bacteria seen on UA. Suspect patient may have bacteremia as she has a history of bacteremia and had her Port-A-Cath removed previously. Currently she has a PICC line although no evidence of infection around insertion site. Blood and urine cultures taken in the ED and we will follow-up the results when available. Chest x-ray has no evidence of pneumonia. We will continue cefepime for now. Tmax 103.1 Fahrenheit and now afebrile. Case discussed with patient's oncologist and recommends given irritated PRBCs if transfusion needed. Hemoglobin 6.9 this morning and repeat 7.3. Likely delusional component given patient's fluid resuscitation. No evidence of GI bleed at this time and most likely related to underlying chemotherapy. We will defer transfusion for now. Troponin elevated on admission and peaked at 0.313 and most likely secondary to demand ischemia. No intervention needed at this time although continue to monitor. Continue to replace electrolytes as needed. Continue reverse isolation precautions. Continue home Synthroid. Repeat hematology and chemistry panel in AM. Dr. Adwoa MD
--- NOTE | 2024-10-10 13:40 | PC.NURSE ---
tea made for pt at this time per pt request
[2024-10-10] MEDS: POTASSIUM CHLORIDE 20 mEq TABCR 40 MEQ PO (14:31)
--- NOTE | 2024-10-10 16:12 | PC.NURSE ---
report given to Nasim on tele floor.. pt to go to room 352
[2024-10-11] VITALS (7 sets, daily range): BP systolic 100–124; BP diastolic 50–77; PULSE 77–88; RESP 16–18; TEMP 35.9–36.6; O2SAT 94–98; BMI 30.9
[2024-10-11] MEDS: SODIUM CHLORIDE 0.9% 1000 ML 1,000 ML 75 ML IV ×2 (03:48→20:17)
[2024-10-11] MEDS: LEVOTHYROXINE SODIUM 25 MCG TABLET 75 MCG PO (05:25)
[2024-10-11] MEDS: CEFEPIME INJ 2 GM in SODIUM CHLORIDE 0.9% (Popper) 50 ML IV ×3 (05:25→21:34)
[2024-10-11 05:38] LABS: Basophils % (Auto) 0 % (0-2.5); Eosinophils % (Auto) 0 % (0-10); Hematocrit 21.7 % (36.0-46.0); Immature Granulocytes % (Auto) 9 % (0-0); Immature Granulocytes Auto 0.35 Thou/mm3 (0.00-0.00); Lymphocytes # (Auto) 0.4 Thou/mm3 (1.0-4.8); Lymphocytes % (Auto) 11 % (10-50); Mean Corpuscular HGB Conc 33.2 g/dl (31.0-37.0); Mean Corpuscular Volume 102 fL (80-100); Monocytes # (Auto) 0.4 Thou/mm3 (0.0-0.8); Monocytes % (Auto) 12 % (0-12); Neutrophils # (Auto) 2.5 Thou/mm3 (1.8-7.7); Neutrophils % (Auto) 68 % (37-80); Nucleated Red Blood Cell % 0 /100 WBC (0); Platelet Count 79 Thou/mm3 (140-440); RDW Standard Deviation 70.4 fL (36.4-46.3); Red Blood Count 2.12 Miln/mm3 (4.00-5.20); White Blood Count 3.7 Thou/mm3 (3.6-11.0)
[2024-10-11 05:47] LABS: Hemoglobin 7.2 g/dL (12.0-16.0)
[2024-10-11 05:50] LABS: Slide Review Platelets confirmed
[2024-10-11 06:32] LABS: Alanine Aminotransferase 16 U/L (10-49); Albumin, Serum 2.4 gm/dL (3.4-4.8); Albumin/Globulin Ratio 1.5 (1.2-2.2); Alkaline Phosphatase 52 U/L (46-116); Anion Gap 8 (7-16); Aspartate Amino Transferase 39 U/L (0-34); BUN/Creatinine Ratio 20 Ratio (12-20); Bilirubin,Total 0.6 mg/dL (0.3-1.2); Blood Urea Nitrogen 8 mg/dL (9-23); Calcium 7.9 mg/dL (8.3-10.6); Calcium (Corrected) 9.2 mg/dL (8.5-10.1); Carbon Dioxide 25.8 mMol/L (20.0-31.0); Chloride 111 mMol/L (98-107); Creatinine (Component) 0.4 mg/dL (0.6-1.3); Estimated Creatinine Clearance 185.1 mL/min (>60); Globulin 1.6 gm/dL (2.3-3.5); Glucose 77 mg/dL (74-106); Magnesium 1.7 mg/dL (1.6-2.6); Osmolality,Calculated 286 (275-295); Phosphorous 2.4 mg/dL (2.4-5.1); Potassium 3.3 mMol/L (3.4-5.1); Sodium 145 mMol/L (136-145); eGFR > 60 See Note
--- NOTE | 2024-10-11 14:30 | ESPR_ITS ---
<Statement entered by Emile Francisco MD - 10/12/24 11:26> I have discussed and was present for the essential components of the history, physical examination, diagnosis, and treatment plan with the resident. I agree with the patient's care as documented by the resident and amended herein by me. Emile Francisco MD FACP. <Statement entered by Vita Goldsmith MD - 10/11/24 15:29> Patient seen and examined at bedside. No acute overnight events reported. Pending final blood cultures, and urine cultures. She denies any abdominal pain, fevers, shortness of breath or chest pain. Patient will continue to be on IV cefepime Q8. Will consider removing PICC line symptoms worsens/or is bacteremic. I discussed with and supervised the intern architect physician who took care of this patient. I personally saw and examined the patient and discussed the assessment and plan with the entire medicine team, including my attending , I agree with most of the assessment and plan as documented below Vita Goldsmith M.D. PGY-2 Disclaimer: Despite multiple revisions, due to the dictation software being used, the document bellow may not be free of grammatical errors including phonetic/typographic errors. However, this does not deter from our commitment to providing health care in the patient's best interest in mind. Documentation for date of: 10/11/24 Subjective Subjective Interval history: No overnight events. Patient seen and examined at bedside, resting comfortably. Patient denies fever, notes, shortness of breath, chest pain, nausea, vomiting. Blood cultures negative x 24 hours, urine cultures pending. Exam Vital Signs Temp Pulse Resp BP Pulse Ox O2 Del Method O2 Flow Rate 97.2 F 80 16 120/71 96 Room Air 2 10/11/24 12:00 10/11/24 12:10/11/24 12:10/11/24 12:10/11/24 12:10/11/24 12:10/10/24 17:23 Narrative Exam PE: Gen: Well-developed and well-nourished. Resting comfortably. HEENT: NCAT, PERRLA, EOMI, MMM, anicteric conjunctivae. CVS: normal S1 and S2. RRR. No M/R/G. Resp: CTA B/L. No rhonchi, rales, crackles or wheezing. Abd: soft, non-tender, non-distended. BS+ in all 4 quadrants. MSK: Good ROM in BUE & BLE. No edema or rash. Neuro: CN II-XII grossly intact. Strength 5/5 in BUE & BLE. Alert and oriented x3. Psych: appropriate mood and affect. Objective Labs 10/11/24 04:21 10/11/24 04:21 Labs: Laboratory Results - last 24 hr 10/10/24 10/11/24 09:11 04:21 WBC 3.7 RBC 2.12 L Hgb 7.2 L Hct 21.7 L* MCV 102 H MCH 34.0 MCHC 33.2 RDW Std Deviation 70.4 H Plt Count 79 L Neut % (Auto) 68 Lymph % (Auto) 11 [place] % (Auto) 12 Eos % (Auto) 0 Baso % (Auto) 0 Neut # (Auto) 2.5 Lymph # (Auto) 0.4 L [place] # (Auto) 0.4 Eos # (Auto) 0.0 Baso # (Auto) 0.0 Immature Gran # (Auto) 0.35 H Absolute Nucleated RBC 0.00 Immature Gran % 9 H Nucleated RBC % 0 Sodium 145 Potassium 3.3 L Chloride 111 H Carbon Dioxide 25.8 Anion Gap 8 BUN 8 L Creatinine 0.4 L Estim Creat Clear Calc 185.1 eGFR > 60 BUN/Creatinine Ratio 20 Glucose 77 Calculated Osmolality 286 Calcium 7.9 L Corrected Calcium 9.2 Phosphorus 2.4 Magnesium 1.7 Total Bilirubin 0.6 AST 39 H ALT 16 Alkaline Phosphatase 52 D Total Protein 4.0 L Albumin 2.4 L D Globulin 1.6 L Albumin/Globulin Ratio 1.5 Misc Test Result Platelets confirmed Crossmatch See Detail Quality Measures Quality Measures VTE prophylaxis Assessment & Plan Assessment Current Active Medications: Generic Name Dose Route Start Last Admin Trade Name Freq PRN Reason Stop Dose Admin Sodium Chloride 1,000 mls @ 75 mls/hr 10/09/24 22:45 10/11/24 03:48 Ns IV 11/08/24 22:44 75 mls/hr .[id number] YVETTE Administration Cefepime HCl 2 gm/ Sodium 50 mls @ 100 mls/hr 10/10/24 14:00 10/11/24 14:01 Chloride IV 10/17/24 13:59 100 mls/hr Q8HR YVETTE Administration Ibuprofen 400 mg 10/10/24 05:01 Ibuprofen Tab 400 Mg Tablet PO 11/09/24 05:00 Q6HR PRN PAIN OR FEVER > 101 Levothyroxine Sodium 75 mcg 10/10/24 08:30 10/11/24 05:25 Levothyroxine Sodium 25 Mcg Tablet PO 11/09/24 08:29 75 mcg ACBR YVETTE Administration Ondansetron HCl 4 mg 10/09/24 22:33 Ondansetron Inj 2 Mg/Ml Inj 2 Ml IV 11/08/24 22:32 Q6H PRN NAUSEA OR VOMITING Protocol Plan 64 y/o female with PMHx B-cell lymphoma (diagnosed January 2024, sees oncologist in [place] but will be seeing Dr. Winters in [place] soon, last chemo 2 weeks ago, gets chemo every 3 weeks), hypertension hyperlipidemia, hypothyroidism, SLE who comes #Sepsis secondary to UTI versus bacteremia #UTI Fever, tachycardia (HR 126), hypotension (BP 80/48), RR 22, temp 103.1?F ? meets >= SIRS criteria. qSOFA 2 (SBP <100, RR >=22). Elevated lactate 3.1, down trended to 2.3. Procalcitonin elevated at 1.23. Patient significantly hypotensive, only improved with approximately 3 L IV bolus due to sepsis. Complicated by immunocompromised state (recent chemotherapy, B-cell lymphoma). UA suggestive of UTI (turbid, WBC 21), possible contaminant. Cannot rule out bacteremia, patient has PICC line for chemotherapy, does not appear infected at this time. Initial blood cultures negative x 24 hours. -Cefepime 2 g IV every 8 hours (started 10/10) -F/U blood and urine cultures -Consider removing PICC line if patient is bacteremic #NSTEMI, Type 2 Mild troponin elevation, peaked at 0.313 without chest pain or ischemic EKG changes; likely due to supply-demand mismatch from hypotension during sepsis. -Continue telemetry monitoring. -Avoid hypotension; support MAP >65 mmHg. -Hold BP meds. #B-cell Lymphoma (on chemotherapy) Active malignancy, recent chemotherapy (2 weeks ago), scheduled to begin maintenance therapy and gets a PET scan on October 16. Immunosuppressed state. Spoke with patient's oncologist Dr. Alvarez, recommended treating has any other septic patient. -Supportive care during hospitalization. -Monitor for tumor lysis, neutropenia, and infection. -Reverse isolation precautions due to immunosuppression #Hypokalemia #Electrolyte derrangements Patient has multiple low electrolytes. Potentially caused by chemotherapy, high cell turnover. -Replace as needed -Trend MG/phosphorus #Macrocytic Anemia Chronic anemia (Hgb 7.1 earlier, now 8.3), MCV 104, history of transfusions; possibly chemotherapy-related and/or nutritional. Spoke to Dr. Alvarez, patient's oncologist, recommend consider transfusion with leukoradiated PRBC. B12 and folate not diminished. Suspect partially due to dilutional anemia in setting of sepsis bolus IV fluids. -Type and crossmatch for PRBC; consider transfusion if symptomatic or Hgb <7?8 based on clinical status. -Monitor CBC trend #Systemic Lupus Erythematosus History of SLE; currently not on immunosuppressants per oncology guidance. -No immediate intervention unless flare suspected (currently none). -Outpatient f/u. #Hypertension, patient history History of HTN; currently hypotensive and septic. Patient received approximately 3 L IV fluids in the ED with improvement in blood pressure. -Hold antihypertensive medications during hypotension. -Resume when hemodynamically stable. -Monitor BP and renal function daily. #Hypothyroidism TSH 1.44 today -Continuing home synthroid 75 mcg Lines: Peripheral IV DVT prophylaxis: Lovenox GI prophylaxis: None indicated at this time Diet: Cardiac CODE STATUS: Full Plan of care discussed with senior resident Dr. Goldsmith PGY?[address] Francisco. Bob Bloom MD PGY?1
[2024-10-12] VITALS: BP 115/71; PULSE 79; RESP 18; TEMP 36.2; O2SAT 98
[2024-10-12 04:00] VITALS: BP 121/68; PULSE 73; PULSE 80; RESP 18; TEMP 36.2; O2SAT 98
[2024-10-12] MEDS: LEVOTHYROXINE SODIUM 25 MCG TABLET 75 MCG PO (05:24)
[2024-10-12] MEDS: CEFEPIME INJ 2 GM in SODIUM CHLORIDE 0.9% (Popper) 50 ML IV (05:24)
[2024-10-12 06:06] LABS: Basophils % (Auto) 1 % (0-2.5); Eosinophils % (Auto) 0 % (0-10); Hematocrit 22.7 % (36.0-46.0); Immature Granulocytes % (Auto) 6 % (0-0); Immature Granulocytes Auto 0.27 Thou/mm3 (0.00-0.00); Lymphocytes # (Auto) 0.6 Thou/mm3 (1.0-4.8); Lymphocytes % (Auto) 14 % (10-50); Mean Corpuscular HGB Conc 33.9 g/dl (31.0-37.0); Mean Corpuscular Hemoglobin 34.4 pg (25.0-35.0); Mean Corpuscular Volume 101 fL (80-100); Monocytes # (Auto) 0.6 Thou/mm3 (0.0-0.8); Monocytes % (Auto) 15 % (0-12); Neutrophils # (Auto) 2.7 Thou/mm3 (1.8-7.7); Neutrophils % (Auto) 65 % (37-80); Nucleated Red Blood Cell % 0 /100 WBC (0); Platelet Count 101 Thou/mm3 (140-440); RDW Standard Deviation 68.1 fL (36.4-46.3); Red Blood Count 2.24 Miln/mm3 (4.00-5.20); White Blood Count 4.2 Thou/mm3 (3.6-11.0)
[2024-10-12 06:12] LABS: Hemoglobin 7.7 g/dL (12.0-16.0)
[2024-10-12 06:36] LABS: Alanine Aminotransferase 18 U/L (10-49); Albumin, Serum 2.5 gm/dL (3.4-4.8); Albumin/Globulin Ratio 1.8 (1.2-2.2); Alkaline Phosphatase 65 U/L (46-116); Anion Gap 9 (7-16); Aspartate Amino Transferase 43 U/L (0-34); BUN/Creatinine Ratio 15 Ratio (12-20); Bilirubin,Total 0.6 mg/dL (0.3-1.2); Blood Urea Nitrogen 6 mg/dL (9-23); Calcium 7.8 mg/dL (8.3-10.6); Carbon Dioxide 24.1 mMol/L (20.0-31.0); Chloride 112 mMol/L (98-107); Creatinine (Component) 0.4 mg/dL (0.6-1.3); Estimated Creatinine Clearance 147.4 mL/min (>60); Globulin 1.4 gm/dL (2.3-3.5); Glucose 82 mg/dL (74-106); Magnesium 1.4 mg/dL (1.6-2.6); Osmolality,Calculated 285 (275-295); Potassium 3.1 mMol/L (3.4-5.1); Sodium 145 mMol/L (136-145); Total Protein 3.9 gm/dL (5.7-8.2); eGFR > 60 See Note
--- NOTE | 2024-10-12 07:03 | PC.NURSE ---
pt refused bed alarm
[2024-10-12 08:00] VITALS: BP 118/80; PULSE 80; PULSE 82; RESP 17; TEMP 36.5; O2SAT 95
[2024-10-12] MEDS: POTASSIUM CHLORIDE 20 mEq TABCR 40 MEQ PO (08:37)
[2024-10-12] MEDS: Magnesium Sulfate 4 GM Ivpb 4 GM/50 ML BAG IV (08:37)
[2024-10-12] MEDS: SODIUM CHLORIDE 0.9% 1000 ML 1,000 ML 75 ML IV (10:48)
--- NOTE | 2024-10-12 11:18 | ESDS_ITS ---
<Statement entered by Emile Francisco MD - 10/13/24 17:12> I have discussed and was present for the essential components of the history, physical examination, diagnosis, and treatment plan with the resident. I agree with the patient's care as documented by the resident and amended herein by me. Emile Francisco MD FACP. <Statement entered by Vita Goldsmith MD - 10/13/24 14:39> I discussed with and supervised the digital marketing intern physician who took care of this patient. I personally saw and examined the patient and discussed the assessment and plan with the entire medicine team, including my attending Dr. Francisco, I agree with most of the assessment and plan as documented below Vita Goldsmith M.D. PGY-2 Planned Discharge Date 10/12/24 DS: Providers Provider Date of admission: 10/09/24 22:33 Primary care physician: Reuben Simmons MD Admitting Provider: Anthony Shay MD Attending Provider on Admission: Emile Francisco MD Consults: 10/10/24 17:38 Referral Registered Dietitian Routine Comment: Attending Provider on DC: Emile Francisco MD Discharging Provider: Bob Bloom MD DS: Diagnosis Problem List Completed Was Problem List Reviewed/Reconciled?: Yes Hospital Course Hospital Course Hospital course: 64 y/o female with PMHx B-cell lymphoma (last chemo 2 weeks ago, gets chemo ever y 3 weeks), hypertension hyperlipidemia, hypothyroidism, SLE who comes in to the ED on 10/12/2024 for an evaluation of fever and chills with associated vomiting. Patient was determined to be septic based on vitals, signs of endorgan damage with lactic acidosis and hypotension, improved with 3 L IV bolus. Urine and blood cultures negative. PICC line showed no signs of infection, is nontender, nonerythematous, no signs of purulence. Patient treated with empiric antibiotics, cefepime, showed significant improvement in subjective symptoms: This. Patient medically cleared and stable for discharge. Discharge plan: You have been started on the following medications: -Cefdinir 300 mg twice a day for 4 more days Please continue taking all other medications as previously prescribed. Please follow-up with your PCP within 1-2 weeks. Return to the ED if you develop new or worsening symptoms. Diagnoses: #Sepsis (resolved) secondary to UTI versus bacteremia #UTI #NSTEMI, Type 2 #B-cell Lymphoma (on chemotherapy) #Hypokalemia #Electrolyte derrangements #Macrocytic Anemia #Systemic Lupus Erythematosus #Hypertension, patient history #Hypothyroidism Plan of care discussed with senior resident Dr. Goldsmith PGY?[address] Francisco. Bob Bloom MD PGY?1 Status at Discharge Overall status at discharge: patient is progressing back to baseline Time Spent with Patient Time attestation: Total time spent providing and/or coordinating discharge services: Time spent: Greater than 30 minutes Exam Vital Signs Temp Pulse Resp BP Pulse Ox O2 Del Method O2 Flow Rate 97.7 F 80 17 118/80 95 Room Air 2 10/12/24 08:00 10/12/24 08:00 10/12/24 08:00 10/12/24 08:00 10/12/24 08:00 10/12/24 08:00 10/10/24 17:23 Narrative Exam PE: Gen: Well-developed and well-nourished. Resting comfortably. HEENT: NCAT, PERRLA, EOMI, MMM, anicteric conjunctivae. CVS: normal S1 and S2. RRR. No M/R/G. Resp: CTA B/L. No rhonchi, rales, crackles or wheezing. Abd: soft, non-tender, non-distended. BS+ in all 4 quadrants. MSK: Good ROM in BUE & BLE. No edema or rash. Neuro: CN II-XII grossly intact. Strength 5/5 in BUE & BLE. Alert and oriented x3. Psych: appropriate mood and affect. Discharge Plan Plan Patient Disposition: HOME (Self Care) Patient condition on transfer: Stable Care Plan Goals: You have been started on the following medications: -Cefdinir 300 mg twice a day for 4 more days Please continue taking all other medications as previously prescribed. Please follow-up with your PCP within 1-2 weeks. Return to the ED if you develop new or worsening symptoms. Prescriptions/Referrals Prescriptions/Med Rec: New cefdinir 300 mg capsule 300 mg PO BID 4 Days Qty: 8 0RF Continued lisinopril 20 MG tablet 20 mg PO QDAY Qty: 0 atorvastatin 10 mg Tablet 10 mg PO QPM levothyroxine 75 mcg Tablet 75 mcg PO QDAY folic acid 1 mg Tablet 1 mg PO QDAY Rx Instructions: not on tue. except on day methotrexate is taken methotrexate sodium 2.5 mg Tablets,Dose Pack 2.5 mg PO QWEEK Discontinued hydroxychloroquine 200 mg Tablet 200 mg PO QDAY Referrals: Reuben Simmons MD [Primary Care Provider] - Patient/Caregiver Discharge Instructions Discharge Activity: resume usual activities Education Materials: Dehydration, Sepsis, When to Use Antibiotics, ED CYSTITIS Female Adult Print Language: Nigerian Stand Alone Forms: Jocelyn Award Info., Patient Portal Info Letter Discharge Order Discharge Orders: Discharge (Routine); Ordered 10/12/24 Ordered By: Bob Bloom Quality Discharge Quality Measures VTE prophylaxis
[2024-10-12 12:00] VITALS: BP 134/78; PULSE 87; PULSE 91; RESP 17; TEMP 36.8; O2SAT 98
--- NOTE | 2024-10-12 15:23 | PC.SS ---
SS met with patient who resides with son and daughter. Patient was admitted for sepsis. Patient states she was independent with ADL's prior to hospitalization. Patient uses a walker/3:1 commode/wheelchair. Family transports patient to appointments. Patient states she was following a CTC in [place]. Patient was going to CTC 1-2 times a week. Patient has one more session for Chemo. Patient states she will be switching service to our [facility] because [place] is getting to be too far. Patient is requesting a referral for [facility]. Patient would benefit from home health services. PCP: VARSHA. Last appt was 2 months ago. Alt decision maker: DaughterSandra,
== END 2024-10-12 13:14 | disposition home or self-care (01) | DRG 720 ==
LOC: SERX 22:32 → SERHOLD 22:40 → S3NX 10-10 16:48
PROVIDERS: Physician Assistant; Student in an Organized Health Care Education/Training Program; Admitting Provider Internal Medicine; Emergency Provider Emergency Medicine; PCP Family Medicine; Visit Provider Internal Medicine
DX: A41.9 Sepsis, unspecified organism (principal); C85.10 Unspecified B-cell lymphoma, unspecified site; I10 Essential (primary) hypertension; E78.5 Hyperlipidemia, unspecified; E03.9 Hypothyroidism, unspecified; M32.9 Systemic lupus erythematosus, unspecified; N39.0 Urinary tract infection, site not specified; D84.9 Immunodeficiency, unspecified; I21.A1 Myocardial infarction type 2; E87.20 Acidosis, unspecified; I95.9 Hypotension, unspecified; D61.818 Other pancytopenia; D53.9 Nutritional anemia, unspecified; J98.11 Atelectasis; E87.6 Hypokalemia; Z78.9 Other specified health status; Z79.890 Hormone replacement therapy; Z90.49 Acquired absence of other specified parts of digestive tract; Z98.51 Tubal ligation status; Z74.09 Other reduced mobility; Z63.4 Disappearance and death of family member; Z11.52 Encounter for screening for COVID-19
CPT/HCPCS: 36415; 36430; 71045; 80048; 80053; 80061; 81001; 82607; 82746; 83036; 83605; 83690; 83735; 84100; 84145; 84443; 84484; 85014; 85018; 85025; 85046; 85652; 86140; 86850; 86900; 86901; 86923; 87040; 87086; 87400; 87634; 87651; 87811; 93005; 96361; 96365; 96366; 96367; 99291; J0131; J0692; J0696; J1885; J3475; J7030; J7040; J7050; P9016; A9270

== ENCOUNTER 2024-10-25 08:38 | Outpatient (RCR) | payer MEDICAID, SELFPAY ==
--- NOTE | 2024-10-12 12:00 | CHAP ---
Patient was visited by the Spiritual Care Volunteer who prayed for them. (Volunteer was in the hospital from 10:00-12:00)
--- NOTE | 2024-10-25 13:30 | CTCCONSULT_ITS ---
Patient: DUSTIN HYDE : 1960 MR#: [id number] Page 2 of 2 CONSULTATION NOTE DATE OF CONSULTATION: 10/25/2024 NAME: DUSTIN HYDE ACCOUNT: [id number] : 1960 AGE: 64 REFERRING PHYSICIAN: Ayaan Ramos MD PRIMARY PHYSICIAN: Ayaan Ramos MD Summary The patient, who has completed 6 cycles of Lenny-R-CHP chemotherapy for diffuse large B cell lymphoma, is currently receiving weekly Neupogen injections to increase cell counts. Recent blood work shows improved hemoglobin and white cell count, suggesting possible discontinuation of Neupogen. A PET-CT scan is scheduled for November 05 to evaluate treatment response. The patient requests the removal of their PICC line due to a history of sepsis and concerns about infection and blood clots. REASON FOR VISIT: Establishing care for diffuse large B-cell lymphoma Subjective complaints Chief Complaint Follow-up after completion of chemotherapy for diffuse large B-cell lymphoma, ongoing Neupogen injections, request for PICC line removal History of Present Illness The patient is a follow-up case of diffuse large B cell lymphoma who has completed 6 cycles of RCHP chemotherapy and was transferred to [facility] by [facility]. They present for ongoing care and management of their condition. The patient reports having finished all their chemotherapy treatments, which included cyclophosphamide and doxorubicin. They are currently receiving weekly Neupogen injections to increase cell counts, though this may no longer be necessary based on recent blood work showing improved hemoglobin (10) and white cell count. A PET-CT scan is scheduled for November 05 in [place] to evaluate the effectiveness of the chemotherapy. The patient has a PICC line that needs removal due to the risk of infection. They mention a previous episode where the PICC line was clogged and caused chills. Additionally, they have a history of sepsis from a previous port. The patient expresses concern about potential infection and blood clots following PICC line removal. The patient reports adherence to their treatment regimen, having completed all prescribed chemotherapy cycles. They are aware of the need for follow-up after the upcoming PET scan to assess their condition further. Medical History - Diffuse large B cell lymphoma, treated with 6 cycles of RCHP chemotherapy - Sepsis, previous episode related to a port Surgical History - PICC line insertion (date not specified) - Port placement (date not specified), complicated by sepsis Medications and Supplements - Neupogen - Weekly injections to increase cell counts - May no longer be needed due to improved blood work - [facility] chemotherapy (6 cycles) - Included cyclophosphamide and doxorubicin - Completed - Chemotherapy - Completed Review of Systems General: Positive for chills. ONCOLOGY HISTORY: DIAGNOSIS: Diffuse large B-cell lymphoma DATE OF DIAGNOSIS: March 2024 STAGE/TNM: Likely stage III I do not have labs or imaging at the time of diagnosis to correctly stage patient TREATMENT HISTORY: Care?Plan Start?Date Cycle Day Intent Lenny R-CHP from April 2025for Till August 2024 HISTORY OF PRESENT ILLNESS: 64-year-old female Patient diagnosed with diffuse large B-cell lymphoma with lymph nodes at multiple sites and was treated with POLAtuzumab rituximab cyclophosphamide doxorubicin prednisone (Lenny-R-CHP). Patient received [address] scan showed multiple para-aortic pericaval lymph nodes biopsy results indicated diffuse large B-cell lymphoma. OTHER MEDICAL HISTORY/CONDITIONS: HYPOTHYROIDISM HYPERTENSION HYPERLIPIDEMIA OBESITY LUPUS PNEUMONIA ANEMIA NEEDING BLOOD TRANSFUSIONS HYPOKALEMIA ANEMIA TUBAL LIGATION 1995 CHOLECYSTECTOMY 2009 BLOOD TRANSFUSIONS NICOLE FUNDOPLICATION COLONOSCOPY FAMILY HISTORY: Father:?DENIES Mother:?DENIES Sibling:?BROTHER?HAD?LIVER/LUNG?CANCER Children:?DENIES Cancer?History:?B?CELL?LYMPHOMA SOCIAL HISTORY: Occupational?History:?RETIRED [employer] Education?Level:?Completed High School Marital?Status:?Single Tobacco?Use:?DENIES ETOH?Use:?DENIES Drug?Note:?DENIES Social History Note:?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 atorvastatin - 10 mg 1 tab Daily 2. levothyroxine - 75 mcg 1 tab Daily 3. lisinopril - 20 mg 1 tab Daily 4. loratadine - 10 mg 1 Capsule Daily 5. sennosides - 8.6 mg 1 Capsule As needed Medications Last Reconciled by Mary Irving RN on 10/25/2024 ALLERGIES: CODEINE PHOSPHATE REVIEW OF SYSTEMS: A complete 14-point review of systems was performed and is negative except as noted in interval history. PHYSICAL EXAMINATION: VITAL SIGNS: Temperature?98.6, B/P?121/71, Height?64?inches, Oxygen?Saturation?97% Weight?170?lbs PAIN: 0 - No pain ECOG Performance Status: 0 - Asymptomatic and fully active GENERAL APPEARANCE: Appears well, in no apparent distress, appropriately interactive. HEENT: Normocephalic, no temporal wasting, normal conjunctiva, no scleral icterus, normal hearing, lips without lesions, neck normal range of motion. CARDIOVASCULAR: Not assessed. PULMONARY: Normal respiratory effort, no respiratory distress or use of accessory muscles, speaking in full sentences, no tachypnea. EXTREMITIES: No pedal edema or cyanosis. SKIN: Normal skin appearance. NEUROLOGIC: Alert and oriented x4. PSHYCHIATRIC: Appropriate affect, mood normal, behavior normal, intact thought and speech. LABORATORY DATA: I have personally reviewed and interpreted each of the patient?s relevant lab tests, abnormal findings are below: Date 10/11/24 10/12/24 ??WHITE?BLOOD?COUNT?(Thou/mm3) 3.7 4.2 ??RED?BLOOD?COUNT?(Miln/mm3) 2.12?L 2.24?L ??HEMOGLOBIN?(gm/dl) 7.2?L 7.7?L ??HEMATOCRIT?(%) 21.7?LL 22.7?L ??PLATELET?COUNT?(Thou/mm3) 79?L 101?L ??NEUTROPHILS?%,?AUTO?(%) 68 65 ??LYMPH?%,?AUTO?(%) 11 14 ??NEUTROPHILS,?AUTO?(Thou/mm3) 2.5 2.7 ??GLUCOSE,RANDOM?(mg/dL) ? 82 ??BLOOD?UREA?NITROGEN?(mg/dL) ? 6?L ??CREATININE?(mg/dL) ? 0.40?L ??SODIUM?(mmol/L) ? 145 ??POTASSIUM?(mmol/L) ? 3.1?L ??CHLORIDE?(mmol/L) ? 112?H ??AST/SGOT?(Unit/L) ? 43?H ??ALT/SGPT?(Unit/L) ? 18 ??ALKALINE?PHOSPHATASE?(Unit/L) ? 65 ??BILIRUBIN,?TOTAL?(mg/dL) ? 0.6 ??PROTEIN?TOTAL?(gm/dl) ? 3.9?L ??ALBUMIN,?SERUM?(gm/dl) ? 2.5?L ??GLOBULIN?(gm/dl) ? 1.4?L ??ALBUMIN/GLOBULIN?RATIO ? 1.8 ??CALCIUM,?SERUM?(mg/dL) ? 7.8?L ??CALCIUM?SERUM?(CORRECTED)?(mg/dL) ? 9.0 ??MAGNESIUM?(mg/dL) ? 1.4?L ASSESSMENT/PLAN: Patient with history of diffuse large B cell lymphoma who completed 6 cycles of RCHP chemotherapy, currently receiving weekly Neupogen injections, presenting for follow-up and management of PICC line. Diffuse large B cell lymphoma, status post chemotherapy Assessment: Patient has completed 6 cycles of RCHP chemotherapy for diffuse large B cell lymphoma, including cyclophosphamide and doxorubicin. Currently receiving weekly Neupogen injections to increase cell counts. Recent blood work showed hemoglobin at 10 and improved white cell count, suggesting possible discontinuation of Neupogen. A PET-CT scan is scheduled for November 05 in [place] to evaluate treatment response. Plan: - Await results of upcoming PET-CT scan on November 05 to assess treatment response - Consider discontinuation of weekly Neupogen injections based on recent blood work results - Schedule follow-up appointment after PET scan to discuss results and further management PICC line management Assessment: Patient has a PICC line in place that was previously clogged and caused chills. There is a history of sepsis from a previous port. The PICC line needs to be removed to prevent infection. Plan: - Remove PICC line - Monitor for signs of infection post-removal - Assess for potential blood clots following PICC line removal ORDERS: Order # Description [id number] Comprehensive Metabolic Panel - 12 + CBC with Auto Diff [id number] Lactate Dehydrogenase (LDH) + Assay Of Haptoglobin Quant [id number] MD Follow Up 4 Week RETURN TO CLINIC: 4 weeks BILLING AND COMPLIANCE: I reviewed external records from providers outside my specialty as summarized above. I spent a total of 50 minutes on this patient?s care on the day of their visit excluding time spent related to any billed procedures. This time includes time spent with the patient as well as time spent documenting in the medical record, reviewing patients records and tests, obtaining history, placing orders, communicating with other healthcare professionals, counseling the patient, family or caregiver, and/or care coordination for the diagnoses above. Electronically Signed by: Chino Martínez MD T: 1:27 PM CC: PCP: Ayaan Ramos Referring: Ayaan Ramos This document was completed utilizing speech recognition software. Grammatical errors, random word insertions, pronoun errors, and incomplete sentences are an occasional consequence of this system due to software limitations, ambient noise, and hardware issues. Any formal questions or concerns about the content, text or information contained within the body of this dictation should be directly addressed to the provider for clarification.
== END 2024-11-14 23:59 | disposition home or self-care (01) ==
LOC: SCTC 08:38
PROVIDERS: PCP Family Medicine; Referring Provider Physician Assistant; Visit Provider Internal Medicine Hematology & Oncology
DX: C83.33 Diffuse large B-cell lymphoma, intra-abdominal lymph nodes (principal); Z92.21 Personal history of antineoplastic chemotherapy
CPT/HCPCS: 99213; G0463

== ENCOUNTER 2024-11-28 14:06 | Outpatient (RCR) | payer MEDICAID, SELFPAY ==
--- NOTE | 2024-12-06 14:17 | CTCFLWUP_ITS ---
Patient: DUSTIN RASHID : 1960 Page 3 of 5 FOLLOW UP NOTE DATE OF SERVICE: 11/28/2024 NAME: DUSTIN RASHID ACCOUNT: [id number] : 1960 AGE: 64 INTERVAL HISTORY: Chief Complaint Follow-up after previous cancer treatment, review of recent PET scan results History of Present Illness Dustin Rashid is a patient with a history of cancer who is following up for ongoing oncology care. She recently had a PET scan on November 05 at another facility, which reportedly showed remission. The patient reports that she is still experiencing discomfort from her recent port removal. She mentions having a persistent bruise at the site and experiencing pain when showering. The patient notes that she has not fully healed from this procedure. Regarding medication, the patient states she cannot take baby aspirin as it hurts her stomach. She also mentions an inability to take codeine, stating it destroys my studies. The patient expresses a preference for receiving care at the current facility, citing difficulty in traveling to [place] for appointments due to her overnight work schedule. She also mentions that her daughter works in [place], which may impact her ability to attend certain appointments. Medications and Supplements - Baby aspirin - Not taking due to stomach pain. - Codeine - Not taking as it interferes with studies. Review of Systems Musculoskeletal: Positive for pain in the area of the removed metaport, discomfort when showering. Gastrointestinal: Positive for stomach pain with aspirin. ONCOLOGY HISTORY: DIAGNOSIS: Diffuse large B-cell lymphoma DATE OF DIAGNOSIS: March 2024 STAGE/TNM: Likely stage III I do not have labs or imaging at the time of diagnosis to correctly stage patient TREATMENT HISTORY: Care?Plan Start?Date Cycle Day Intent HISTORY OF PRESENT ILLNESS: 64-year-old female Patient diagnosed with diffuse large B-cell lymphoma with lymph nodes at multiple sites and was treated with POLAtuzumab rituximab cyclophosphamide doxorubicin prednisone (Lenny-R-CHP). Patient received [address] scan showed multiple para-aortic pericaval lymph nodes biopsy results indicated diffuse large B-cell lymphoma. OTHER MEDICAL HISTORY/CONDITIONS: HYPOTHYROIDISM HYPERTENSION HYPERLIPIDEMIA OBESITY LUPUS PNEUMONIA ANEMIA NEEDING BLOOD TRANSFUSIONS HYPOKALEMIA ANEMIA TUBAL LIGATION 1995 CHOLECYSTECTOMY 2009 BLOOD TRANSFUSIONS NICOLE FUNDOPLICATION COLONOSCOPY FAMILY HISTORY: Father:?DENIES Mother:?DENIES Sibling:?BROTHER?HAD?LIVER/LUNG?CANCER Children:?DENIES Cancer?History:?B?CELL?LYMPHOMA SOCIAL HISTORY: Occupational?History:?RETIRED [employer] Education?Level:?Completed High School Marital?Status:?Single Tobacco?Use:?DENIES ETOH?Use:?DENIES Drug?Note:?DENIES Social History Note:?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 atorvastatin - 10 mg 1 tab Daily 2. levothyroxine - 75 mcg 1 tab Daily 3. loratadine - 10 mg 1 Capsule Daily 4. sennosides - 8.6 mg 1 Capsule As needed Medications Last Reconciled by Kourtney Alcala MA on 11/28/2024 ALLERGIES: CODEINE PHOSPHATE REVIEW OF SYSTEMS: A complete 14-point review of systems was performed and is negative except as noted in interval history. PHYSICAL EXAMINATION: VITAL SIGNS: Temperature?97.3, B/P?119/82, Oxygen?Saturation?97% Weight?161?lbs PAIN: 0 - No pain ECOG Performance Status: 0 - Asymptomatic and fully active GENERAL APPEARANCE: Appears well, in no apparent distress, appropriately interactive. HEENT: Normocephalic, no temporal wasting, normal conjunctiva, no scleral icterus, normal hearing, lips without lesions, neck normal range of motion. CARDIOVASCULAR: Not assessed. PULMONARY: Normal respiratory effort, no respiratory distress or use of accessory muscles, speaking in full sentences, no tachypnea. EXTREMITIES: No pedal edema or cyanosis. SKIN: Normal skin appearance. NEUROLOGIC: Alert and oriented x4. PSHYCHIATRIC: Appropriate affect, mood normal, behavior normal, intact thought and speech. LABORATORY DATA: I have personally reviewed and interpreted each of the patient?s relevant lab tests, abnormal findings are below: Date 10/11/24 10/12/24 ??WHITE?BLOOD?COUNT?(Thou/mm3) 3.7 4.2 ??RED?BLOOD?COUNT?(Miln/mm3) 2.12?L 2.24?L ??HEMOGLOBIN?(gm/dl) 7.2?L 7.7?L ??HEMATOCRIT?(%) 21.7?LL 22.7?L ??PLATELET?COUNT?(Thou/mm3) 79?L 101?L ??NEUTROPHILS?%,?AUTO?(%) 68 65 ??LYMPH?%,?AUTO?(%) 11 14 ??NEUTROPHILS,?AUTO?(Thou/mm3) 2.5 2.7 ??GLUCOSE,RANDOM?(mg/dL) ? 82 ??BLOOD?UREA?NITROGEN?(mg/dL) ? 6?L ??CREATININE?(mg/dL) ? 0.40?L ??SODIUM?(mmol/L) ? 145 ??POTASSIUM?(mmol/L) ? 3.1?L ??CHLORIDE?(mmol/L) ? 112?H ??AST/SGOT?(Unit/L) ? 43?H ??ALT/SGPT?(Unit/L) ? 18 ??ALKALINE?PHOSPHATASE?(Unit/L) ? 65 ??BILIRUBIN,?TOTAL?(mg/dL) ? 0.6 ??PROTEIN?TOTAL?(gm/dl) ? 3.9?L ??ALBUMIN,?SERUM?(gm/dl) ? 2.5?L ??GLOBULIN?(gm/dl) ? 1.4?L ??ALBUMIN/GLOBULIN?RATIO ? 1.8 ??CALCIUM,?SERUM?(mg/dL) ? 7.8?L ??CALCIUM?SERUM?(CORRECTED)?(mg/dL) ? 9.0 ??MAGNESIUM?(mg/dL) ? 1.4?L ASSESSMENT/PLAN: Patient with history of diffuse large B cell lymphoma who completed 6 cycles of RCHP chemotherapy, currently receiving weekly Neupogen injections, presenting for follow-up and management of PICC line. Diffuse large B cell lymphoma, status post chemotherapy Assessment: Patient has completed 6 cycles of RCHP chemotherapy for diffuse large B cell lymphoma, including cyclophosphamide and doxorubicin. A PET-CT scan is negative Cancer in remission Assessment: Patient reports being in remission based on a recent PET scan performed on November 05. The exact type of cancer is not specified in the transcript. The patient's previous oncologist informed her of the remission status. However, we do not have access to the actual PET scan results or other medical records from the previous provider. Plan: - Order new PET scan to be performed in January or February (in approximately 2-3 months) - Request all old scans from previous provider to be added to our system for comparison - Order laboratory tests: CBC, CMP, LDH, and uric acid - Follow-up appointment scheduled in 2 months (January) after the PET scan - Instruct patient to call Jeanie in January to check on PET scan scheduling Post-procedure complications Assessment: Patient reports ongoing discomfort from the removal of a medical resident, a central line or port. She mentions incomplete healing from a port and persistent bruising. The patient experiences pain during showering, indicating ongoing sensitivity at the removal site. Plan: - Reassure patient that the site will improve with time - Monitor for signs of infection or other complications at the next follow-up visit Medication sensitivities Assessment: Patient reports inability to tolerate baby aspirin due to stomach discomfort. She also mentions an intolerance to codeine, stating it destroys her studies, possibly referring to side effects interfering with her ability to work or concentrate. Plan: - Avoid prescribing aspirin and codeine-containing medications - Consider alternative pain management options if needed in the future ORDERS: Order # Description [id number] PET/CT of Skull to mid-thigh for Restaging [id number] Comprehensive Metabolic Panel - 12 + CBC with Auto Diff RETURN TO CLINIC: BILLING AND COMPLIANCE: I reviewed external records from providers outside my specialty as summarized above. I spent a total of 50 minutes on this patient?s care on the day of their visit excluding time spent related to any billed procedures. This time includes time spent with the patient as well as time spent documenting in the medical record, reviewing patients records and tests, obtaining history, placing orders, communicating with other healthcare professionals, counseling the patient, family or caregiver, and/or care coordination for the diagnoses above. Electronically Signed by: Chino Martínez MD T: 11:40 PM CC: PCP: Reuben Simmons Referring: Reuben Simmons This document was completed utilizing speech recognition software. Grammatical errors, random word insertions, pronoun errors, and incomplete sentences are an occasional consequence of this system due to software limitations, ambient noise, and hardware issues. Any formal questions or concerns about the content, text or information contained within the body of this dictation should be directly addressed to the provider for clarification.
== END 2024-12-15 23:59 | disposition home or self-care (01) ==
LOC: SCTC 14:06
PROVIDERS: PCP Physician Assistant; Referring Provider Family Medicine; Visit Provider Internal Medicine Hematology & Oncology
DX: C83.3A Diffuse large B-cell lymphoma, in remission (principal); Z92.21 Personal history of antineoplastic chemotherapy; T82.848D Pain due to vascular prosthetic devices, implants and grafts, subsequent encounter; Y84.8 Other medical procedures as the cause of abnormal reaction of the patient, or of later complication, without mention of misadventure at the time of the procedure
CPT/HCPCS: 99212; G0463

== ENCOUNTER → 2025-02-19 | Outpatient (CLI) | payer MEDICARE, MEDICAID, SELFPAY ==
--- NOTE | 2025-02-19 08:00 | XR_ITS ---
EXAMINATION: PET/CT FUSION SKULL TO THIGH EXAM DATE AND TIME: February 19, 2025, 0930 hours COMPARISON: CTA chest May 30, 2024, CT abdomen pelvis May 24, 2024, CT abdomen January 27, 2024 INDICATIONS: Diagnosis lymphoma restaging post treatment CTDI:vol (mGy) 4.64 DLP: (mGycm) 424.23 PROCEDURE: 13.9 mCi FDG was administered intravenously To allow for distribution and uptake of radiotracer, the patient was allowed to rest quietly in a shielded room. Imaging was performed on an integrated 16-slice PET/CT scanner, with scanning from the skull base to the mid thigh. Serum blood glucose at the time of the injection was measured 78 Technique mg/dL. CT scanning was performed without oral or intravenous contrast material. FINDINGS: Head and Neck: There is no bernice hypermetabolism in the neck. The visualized portions of the brain are normal in appearance on CT. Chest: 4 mm non hypermetabolic pulmonary nodule right upper lobe Additional pulmonary nodules are not depicted on this low resolution CT chest without contrast compared to the high-resolution CT chest May 30, 2024 Abdomen and Pelvis: 8mm left lateral periaortic lymph node compared to 23 mm left lateral periaortic lymph node on May 24, 2024 The pericaval lymph nodes and remaining periaortic lymphadenopathy no longer identified No current pelvic lymphadenopathy No pelvic lymphadenopathy Musculoskeletal: Marrow uptake is within normal range. IMPRESSION: Significant treatment response 4 mm non hypermetabolic pulmonary nodule right upper lobe, additional pulmonary nodules are not depicted on this low resolution CT chest compared to the high-resolution CT chest May 30, 2024 Almost complete resolution of abdominal pelvic lymphadenopathy, 8mm residual left lateral aortic lymph node compared to [address] abdomen pelvis May 24, 2024, no other lymphadenopathy noted
== END | disposition home or self-care (01) ==
LOC: CDIM 07:46
PROVIDERS: PCP Family Medicine; Referring Provider Internal Medicine Hematology & Oncology; Visit Provider Internal Medicine Hematology & Oncology
DX: R91.1 Solitary pulmonary nodule (principal); C85.10 Unspecified B-cell lymphoma, unspecified site
CPT/HCPCS: 78815; A9552

== ENCOUNTER 2025-02-28 09:30 | Outpatient (RCR) | payer MEDICARE, MEDICAID, SELFPAY ==
--- NOTE | 2025-02-28 11:18 | CTCFLWUP_ITS ---
Patient: DUSTIN RASHID : 1960 Page 4 of 5 FOLLOW UP NOTE DATE OF SERVICE: 02/28/2025 NAME: DUSTIN RASHID ACCOUNT: [id number] : 1960 AGE: 65 INTERVAL HISTORY: Chief Complaint Follow-up after previous cancer treatment, review of recent PET scan results History of Present Illness Dustin Rashid is a patient with a history of cancer who is following up for ongoing oncology care. She recently had a PET scan on November 05 at another facility, which reportedly showed remission. The patient reports that she is still experiencing discomfort from her recent port removal. She mentions having a persistent bruise at the site and experiencing pain when showering. The patient notes that she has not fully healed from this procedure. Regarding medication, the patient states she cannot take baby aspirin as it hurts her stomach. She also mentions an inability to take codeine, stating it destroys my studies. The patient expresses a preference for receiving care at the current facility, citing difficulty in traveling to [place] for appointments due to her overnight work schedule. She also mentions that her daughter works in [place], which may impact her ability to attend certain appointments. Medications and Supplements - Baby aspirin - Not taking due to stomach pain. - Codeine - Not taking as it interferes with studies. Review of Systems Musculoskeletal: Positive for pain in the area of the removed metaport, discomfort when showering. Gastrointestinal: Positive for stomach pain with aspirin. ONCOLOGY HISTORY: DIAGNOSIS: Diffuse large B-cell lymphoma DATE OF DIAGNOSIS: March 2024 STAGE/TNM: Likely stage III I do not have labs or imaging at the time of diagnosis to correctly stage patient TREATMENT HISTORY: Care?Plan Start?Date Cycle Day Intent HISTORY OF PRESENT ILLNESS: 65-year-old female Patient diagnosed with diffuse large B-cell lymphoma with lymph nodes at multiple sites and was treated with POLAtuzumab rituximab cyclophosphamide doxorubicin prednisone (Lenny-R-CHP). Patient received [address] scan showed multiple para-aortic pericaval lymph nodes biopsy results indicated diffuse large B-cell lymphoma. 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 MEDICATIONS: 1. atorvastatin - 10 mg 1 tab Daily 2. levothyroxine - 75 mcg 1 tab Daily 3. loratadine - 10 mg 1 Capsule Daily 4. sennosides - 8.6 mg 1 Capsule As needed Medications Last Reconciled by Kourtney Wang MD on 02/28/2025 ALLERGIES: CODEINE PHOSPHATE REVIEW OF SYSTEMS: A complete 14-point review of systems was performed and is negative except as noted in interval history. PHYSICAL EXAMINATION: VITAL SIGNS: PAIN: 0 - No pain ECOG Performance Status: 2 - Symptomatic; ambulatory; capable of self-care; >50% of waking hrs. not in bed GENERAL APPEARANCE: Appears well, in no apparent distress, appropriately interactive. HEENT: Normocephalic, no temporal wasting, normal conjunctiva, no scleral icterus, normal hearing, lips without lesions, neck normal range of motion. CARDIOVASCULAR: Not assessed. PULMONARY: Normal respiratory effort, no respiratory distress or use of accessory muscles, speaking in full sentences, no tachypnea. EXTREMITIES: No pedal edema or cyanosis. SKIN: Normal skin appearance. NEUROLOGIC: Alert and oriented x4 , short stepping gate PSHYCHIATRIC: Appropriate affect, mood normal, behavior normal, intact thought and speech. LABORATORY DATA: I have personally reviewed and interpreted each of the patient?s relevant lab tests, abnormal findings are below: Date 10/11/24 10/12/24 ??WHITE?BLOOD?COUNT?(Thou/mm3) 3.7 4.2 ??RED?BLOOD?COUNT?(Miln/mm3) 2.12?L 2.24?L ??HEMOGLOBIN?(gm/dl) 7.2?L 7.7?L ??HEMATOCRIT?(%) 21.7?LL 22.7?L ??PLATELET?COUNT?(Thou/mm3) 79?L 101?L ??NEUTROPHILS?%,?AUTO?(%) 68 65 ??LYMPH?%,?AUTO?(%) 11 14 ??NEUTROPHILS,?AUTO?(Thou/mm3) 2.5 2.7 ??GLUCOSE,RANDOM?(mg/dL) ? 82 ??BLOOD?UREA?NITROGEN?(mg/dL) ? 6?L ??CREATININE?(mg/dL) ? 0.40?L ??SODIUM?(mmol/L) ? 145 ??POTASSIUM?(mmol/L) ? 3.1?L ??CHLORIDE?(mmol/L) ? 112?H ??AST/SGOT?(Unit/L) ? 43?H ??ALT/SGPT?(Unit/L) ? 18 ??ALKALINE?PHOSPHATASE?(Unit/L) ? 65 ??BILIRUBIN,?TOTAL?(mg/dL) ? 0.6 ??PROTEIN?TOTAL?(gm/dl) ? 3.9?L ??ALBUMIN,?SERUM?(gm/dl) ? 2.5?L ??GLOBULIN?(gm/dl) ? 1.4?L ??ALBUMIN/GLOBULIN?RATIO ? 1.8 ??CALCIUM,?SERUM?(mg/dL) ? 7.8?L ??CALCIUM?SERUM?(CORRECTED)?(mg/dL) ? 9.0 ??MAGNESIUM?(mg/dL) ? 1.4?L ASSESSMENT/PLAN: Patient with history of diffuse large B cell lymphoma who completed 6 cycles of RCHP chemotherapy, currently receiving weekly Neupogen injections, presenting for follow-up and management of PICC line. Diffuse large B cell lymphoma, status post chemotherapy Assessment: Patient has completed 6 cycles of RCHP chemotherapy for diffuse large B cell lymphoma, including cyclophosphamide and doxorubicin. A PET-CT scan is negative Pet ct scan shows good response with one very small nodule only visible Will cont to monitor Have underlying Parkinson likely 3 months ORDERS: Order # Description [id number] + Comprehensive Metabolic Panel - 12 + CBC with Auto Diff + Uric Acid, Serum [id number] Lactate Dehydrogenase (LDH) 5586260 Vitamin B-12 + Ferritin + Folic Acid; Serum + Iron Panel [id number] MD Follow Up 2 Months [id number] DXA L-Spine and Hip [id number] 3D Mammogram Screening + Bilateral RETURN TO CLINIC: I reviewed the diagnosis, prognosis, and recommended treatment/procedure options with the patient (and/or their legal commissary representative), including the potential benefits, risks, side effects and alternative therapies. We also discussed the option of no treatment and the possibility of clinical trial participation, if applicable. All questions were addressed, and they demonstrated understanding. They provided informed consent to proceed with the proposed plan of care. BILLING AND COMPLIANCE: I reviewed external records from providers outside my specialty as summarized above. I spent a total of 50 minutes on this patient?s care on the day of their visit excluding time spent related to any billed procedures. This time includes time spent with the patient as well as time spent documenting in the medical record, reviewing patients records and tests, obtaining history, placing orders, communicating with other healthcare professionals, counseling the patient, family or caregiver, and/or care coordination for the diagnoses above. Electronically Signed by: {Object.Sanct_ID*PnP.NameFL@M}, {Object.Sanct_ID*PnP.Suffix@U} D: {Object.Sanct_Date} T: {Object.Sanct_Time} CC: PCP: Reuben Simmons Referring: Reuben Simmons This document was completed utilizing speech recognition software. Grammatical errors, random word insertions, pronoun errors, and incomplete sentences are an occasional consequence of this system due to software limitations, ambient noise, and hardware issues. Any formal questions or concerns about the content, text or information contained within the body of this dictation should be directly addressed to the provider for clarification.
== END 2025-03-17 23:59 | disposition home or self-care (01) ==
LOC: SCTC 09:30
PROVIDERS: PCP Family Medicine; Referring Provider Family Medicine; Visit Provider Internal Medicine Hematology & Oncology
DX: C83.38 Diffuse large B-cell lymphoma, lymph nodes of multiple sites (principal); Z92.21 Personal history of antineoplastic chemotherapy
CPT/HCPCS: 99212; G0463

== ENCOUNTER → 2025-04-17 | Outpatient (CLI) | payer MEDICARE, MEDICAID, SELFPAY ==
--- NOTE | 2025-04-17 11:30 | XR_ITS ---
Examination: Screening digital mammography, bilateral Computer aided detection 3-D breast Tomosynthesis, bilateral Date and time of exam: April 17, 2025 1117 hours Compared to mammograms dating to August 14, 2008 Indication: Screening Technique: Nonmagnified MLO, CC views of the breasts to been obtained, reconstructed from 3-D Tomosynthesis images. R2 computer aided detection program utilized for evaluation of suspicious masses and/or abnormal calcifications. 3-D Tomosynthesis images obtained. Findings: Scattered areas of fibroglandular density. Benign calcifications. No interval suspicious masses Impression: BI-RADS category II: Benign Findings. Recommend 1 year follow-up mammogram.
== END | disposition home or self-care (01) ==
LOC: CDIM 11:04
PROVIDERS: Referring Provider Internal Medicine Hematology & Oncology; Visit Provider Internal Medicine Hematology & Oncology
DX: Z12.31 Encounter for screening mammogram for malignant neoplasm of breast (principal); R92.323 Mammographic fibroglandular density, bilateral breasts; R92.1 Mammographic calcification found on diagnostic imaging of breast; C85.10 Unspecified B-cell lymphoma, unspecified site
CPT/HCPCS: 77063; 77067

== ENCOUNTER → 2025-04-22 | Outpatient (CLI) | payer MEDICARE, MEDICAID, SELFPAY ==
--- NOTE | 2025-04-22 13:40 | XR_ITS ---
Examination: Bone densitometry Date and time of exam: 04/22/2025 1439 hrs Technique: Lumbar spine and hip total bone mineralization values of an calculated. Peak reference and age match control results have been displayed. Findings: Lumbar spine total bone mineralization is1.004.gm/cm2. This is .4standard deviations below peak reference. This is .4 standard deviations above age-matched controls. Hip total bone mineralization is .977 gm/cm2 This is .1 standard deviations above peak reference. This is 1.2 standard deviations above age-matched controls Impression: There is normal mineralization based on lumbar spine measurements. There is normal mineralization based on hip measurements
== END | disposition home or self-care (01) ==
LOC: CDIM 13:47
PROVIDERS: Referring Provider Internal Medicine Hematology & Oncology; Visit Provider Internal Medicine Hematology & Oncology
DX: M81.0 Age-related osteoporosis without current pathological fracture (principal); C85.10 Unspecified B-cell lymphoma, unspecified site
CPT/HCPCS: 77080

== ENCOUNTER 2025-05-13 13:31 | Outpatient (RCR) | payer MEDICARE, MEDICAID, SELFPAY ==
--- NOTE | 2025-05-14 22:11 | CTCFLWUP_ITS ---
Patient: DUSTIN HYDE : 1960 Page 3 of 4 FOLLOW UP NOTE DATE OF SERVICE: 05/13/2025 NAME: DUSTIN HYDE ACCOUNT: [id number] : 1960 AGE: 65 INTERVAL HISTORY: Patient here for follow up on her hx of diffuse large B-cell lymphoma. No new symptoms . Medications and Supplements - Baby aspirin - Not taking due to stomach pain. - Codeine - Not taking as it interferes with studies. Review of Systems Musculoskeletal: Positive for pain in the area of the removed metaport, discomfort when showering. Gastrointestinal: Positive for stomach pain with aspirin. ONCOLOGY HISTORY: DIAGNOSIS: Diffuse large B-cell lymphoma DATE OF DIAGNOSIS: March 2024 STAGE/TNM: Likely stage III I do not have labs or imaging at the time of diagnosis to correctly stage patient TREATMENT HISTORY: Care?Plan Start?Date Cycle Day Intent HISTORY OF PRESENT ILLNESS: 65-year-old female Patient diagnosed with diffuse large B-cell lymphoma with lymph nodes at multiple sites and was treated with POLAtuzumab rituximab cyclophosphamide doxorubicin prednisone (Lenny-R-CHP). Patient received [address] scan showed multiple para-aortic pericaval lymph nodes biopsy results indicated diffuse large B-cell lymphoma. 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 atorvastatin - 10 mg 1 tab Daily 2. B12 - 5,000-100 mcg 1 tab Daily 3. levothyroxine - 75 mcg 1 tab Daily 4. lisinopril - 5 mg 2 tab Daily Medications Last Reconciled by Kourtney Alcala MA on 05/13/2025 ALLERGIES: CODEINE PHOSPHATE REVIEW OF SYSTEMS: A complete 14-point review of systems was performed and is negative except as noted in interval history. PHYSICAL EXAMINATION: VITAL SIGNS: Temperature?98.4, B/P?123/71, Oxygen?Saturation?99% Weight?164?lbs PAIN: U - Patient unable to answer ECOG Performance Status: 0 - Asymptomatic and fully active GENERAL APPEARANCE: Appears well, in no apparent distress, appropriately interactive. HEENT: Normocephalic, no temporal wasting, normal conjunctiva, no scleral icterus, normal hearing, lips without lesions, neck normal range of motion. CARDIOVASCULAR: Not assessed. PULMONARY: Normal respiratory effort, no respiratory distress or use of accessory muscles, speaking in full sentences, no tachypnea. EXTREMITIES: No pedal edema or cyanosis. SKIN: Normal skin appearance. NEUROLOGIC: Alert and oriented x4 , short stepping gate PSHYCHIATRIC: Appropriate affect, mood normal, behavior normal, intact thought and speech. LABORATORY DATA: I have personally reviewed and interpreted each of the patient?s relevant lab tests, abnormal findings are below: Date 10/11/24 10/12/24 ??WHITE?BLOOD?COUNT?(Thou/mm3) 3.7 4.2 ??RED?BLOOD?COUNT?(Miln/mm3) 2.12?L 2.24?L ??HEMOGLOBIN?(gm/dl) 7.2?L 7.7?L ??HEMATOCRIT?(%) 21.7?LL 22.7?L ??PLATELET?COUNT?(Thou/mm3) 79?L 101?L ??NEUTROPHILS?%,?AUTO?(%) 68 65 ??LYMPH?%,?AUTO?(%) 11 14 ??NEUTROPHILS,?AUTO?(Thou/mm3) 2.5 2.7 ??GLUCOSE,RANDOM?(mg/dL) ? 82 ??BLOOD?UREA?NITROGEN?(mg/dL) ? 6?L ??CREATININE?(mg/dL) ? 0.40?L ??SODIUM?(mmol/L) ? 145 ??POTASSIUM?(mmol/L) ? 3.1?L ??CHLORIDE?(mmol/L) ? 112?H ??AST/SGOT?(Unit/L) ? 43?H ??ALT/SGPT?(Unit/L) ? 18 ??ALKALINE?PHOSPHATASE?(Unit/L) ? 65 ??BILIRUBIN,?TOTAL?(mg/dL) ? 0.6 ??PROTEIN?TOTAL?(gm/dl) ? 3.9?L ??ALBUMIN,?SERUM?(gm/dl) ? 2.5?L ??GLOBULIN?(gm/dl) ? 1.4?L ??ALBUMIN/GLOBULIN?RATIO ? 1.8 ??CALCIUM,?SERUM?(mg/dL) ? 7.8?L ??CALCIUM?SERUM?(CORRECTED)?(mg/dL) ? 9.0 ??MAGNESIUM?(mg/dL) ? 1.4?L ASSESSMENT/PLAN: Patient with history of diffuse large B cell lymphoma who completed 6 cycles of RCHP chemotherapy, currently receiving weekly Neupogen injections, presenting for follow-up and management of PICC line. Diffuse large B cell lymphoma, status post chemotherapy Assessment: Patient has completed 6 cycles of RCHP chemotherapy for diffuse large B cell lymphoma, including cyclophosphamide and doxorubicin. A PET-CT scan is negative Pet ct scan shows good response with one very small nodule only visible Will cont to monitor Labs show high ferritin Repeat labs Check for HFE gene Ultrasound liver to see any iron deposit ORDERS: Order # Description [id number] Comprehensive Metabolic Panel - 12 + CBC with Auto Diff + Uric Acid, Serum [id number] Lactate Dehydrogenase (LDH) [id number] Follow Up 3 Months [id number] Hereditary Hemochromatosis DNA analysis RETURN TO CLINIC: I reviewed the diagnosis, prognosis, and recommended treatment/procedure options with the patient (and/or their legal artists' booking representative), including the potential benefits, risks, side effects and alternative therapies. We also discussed the option of no treatment and the possibility of clinical trial participation, if applicable. All questions were addressed, and they demonstrated understanding. They provided informed consent to proceed with the proposed plan of care. BILLING AND COMPLIANCE: I reviewed external records from providers outside my specialty as summarized above. I spent a total of 50 minutes on this patient?s care on the day of their visit excluding time spent related to any billed procedures. This time includes time spent with the patient as well as time spent documenting in the medical record, reviewing patients records and tests, obtaining history, placing orders, communicating with other healthcare professionals, counseling the patient, family or caregiver, and/or care coordination for the diagnoses above. Electronically Signed by: {Object.Sanct_ID*PnP.NameFL@M}, {Object.Sanct_ID*PnP.Suffix@U} D: {Object.Sanct_Date} T: {Object.Sanct_Time} CC: PCP: Chino Martínez Referring: Chino Martínez This document was completed utilizing speech recognition software. Grammatical errors, random word insertions, pronoun errors, and incomplete sentences are an occasional consequence of this system due to software limitations, ambient noise, and hardware issues. Any formal questions or concerns about the content, text or information contained within the body of this dictation should be directly addressed to the provider for clarification.
== END 2025-05-17 23:59 | disposition home or self-care (01) ==
LOC: SCTC 13:31
PROVIDERS: PCP Family Medicine; Referring Provider Internal Medicine Hematology & Oncology; Visit Provider Internal Medicine Hematology & Oncology
DX: C83.38 Diffuse large B-cell lymphoma, lymph nodes of multiple sites (principal)
CPT/HCPCS: 99212; G0463

== ENCOUNTER → 2025-07-01 | Outpatient (CLI) | payer MEDICARE, MEDICAID, SELFPAY ==
--- NOTE | 2025-07-01 08:45 | XR_ITS ---
Examination: Abdomen sonogram, Limited Date and time of exam: July 01, 2025, 0911 hours INDICATIONS: Diagnosis unspecified B-cell lymphoma 1 year Technique: Real-time acuna scale transabdominal sonographic images of the upper abdomen obtained. Findings: Absent gallbladder Normal common bile duct 0.3 cm Pancreatic head 2.6 cm Liver 11.3 cm fatty infiltration smooth contour Normal hepatopetal portal venous flow Patent IVC IMPRESSION: Absent gallbladder Normal common bile duct
== END | disposition home or self-care (01) ==
LOC: CDIM 08:47
PROVIDERS: PCP Family Medicine; Referring Provider Internal Medicine Hematology & Oncology; Visit Provider Internal Medicine Hematology & Oncology
DX: C85.10 Unspecified B-cell lymphoma, unspecified site (principal)
CPT/HCPCS: 76705